=== PATIENT | male | born 1980 | race African-American/Black ===

== ENCOUNTER → 2018-06-02 | Outpatient (CLI) | payer OTHER | LOC: HYPER 07:00 | DX: L97.822 Non-pressure chronic ulcer of other part of left lower leg with fat layer exposed (principal); L97.812 Non-pressure chronic ulcer of other part of right lower leg with fat layer exposed; I87.2 Venous insufficiency (chronic) (peripheral); E66.01 Morbid (severe) obesity due to excess calories; Z79.891 Long term (current) use of opiate analgesic; Z48.817 Encounter for surgical aftercare following surgery on the skin and subcutaneous tissue; Z68.45 Body mass index [BMI] 70 or greater, adult ==

== ENCOUNTER → 2018-06-13 | Outpatient (CLI) | payer OTHER | LOC: HYPER 07:06 | DX: L97.812 Non-pressure chronic ulcer of other part of right lower leg with fat layer exposed (principal); L97.222 Non-pressure chronic ulcer of left calf with fat layer exposed; I87.2 Venous insufficiency (chronic) (peripheral); I89.0 Lymphedema, not elsewhere classified; E66.01 Morbid (severe) obesity due to excess calories; Z48.817 Encounter for surgical aftercare following surgery on the skin and subcutaneous tissue; Z79.891 Long term (current) use of opiate analgesic; Z68.45 Body mass index [BMI] 70 or greater, adult ==

== ENCOUNTER 2018-07-29 05:15 | Day surgery (SDC) | payer OTHER ==
[~2018-07-29] VITALS: Ht 185.4 cm; Wt 295.3 kg
[~2018-07-29 05:15] MED LIST: DAKIN'S473 ML TOP; LASIX 40 MG TAB40 M2 PO; NEURONTIN 300300 M1 PO; POTASSIUM20 PO
[2018-07-29 09:30] VITALS: BP 135/96
[2018-07-29 10:14] LABS: CREATININE 0.9 mg/dL (0.7-1.3); POTASSIUM 3.6 mmol/L (3.5-5.1)
[2018-07-29 12:19] VITALS: BP 135/96
--- NOTE | 2018-08-09 12:33 | O ---
[facility] [place] [address] OPERATIVE REPORT Name: PATRICK GALAVIZ Room #: DEP [facility].#: [id number] Admission: 07/29/18 ������������������ Attend Phys: Lillian Weiss MD, Discharge: 07/29/18 ������������������ Date of : 82 Report #: [id number] THIS REPORT FOR: //name// CC: FAM unknown Lillian Weiss DATE OF SERVICE: 07/29/2018 PREOPERATIVE DIAGNOSES: 1. Super morbid obesity. 2. Massive bilateral lower extremity lymphedema. 3. Nonhealing left lower extremity venous stasis wound that is near circumferential. POSTOPERATIVE DIAGNOSES: 1. Super morbid obesity. 2. Massive bilateral lower extremity lymphedema. 3. Nonhealing left lower extremity venous stasis wound that is near circumferential. PROCEDURE PERFORMED: Excisional debridement of skin, subcutaneous tissue and muscle/fascia of a nonhealing left lower extremity venous stasis ulcerative wound, ultimately measuring 62 x 37 cm in dimension (2294 square cm). Preoperative and postoperative wound measurements did not differ substantially as the overall dimensions of the wound did not change. SURGEON: Lillian Weiss M.D. QUALITY ASSURANCE ASSISTANT: Medical student. ANESTHESIA: General endotracheal anesthesia. ESTIMATED BLOOD LOSS: Minimal (less than 5 mL). COMPLICATIONS: None appreciated. SPECIMENS: All debrided tissue to pathology. INDICATIONS: The patient is a 38-year-old severe super morbidly obese -Iranian male with massive bilateral lower extremity lymphedema who developed venous stasis ulceration to the left lower extremity with near circumferential wounds that shows fibrinous necrotic tissue throughout. As such, indication was for the above-mentioned procedure today. DESCRIPTION OF PROCEDURE: After explaining the risks, benefits and alternatives of the procedure with the patient in detail and obtaining consent, the patient [address] [address] OPERATIVE REPORT Name: GALAVIZPATRICK Room #: DEP [facility] [place].Millie.#: [id number] Admission: 07/29/18 ������������������ Attend Phys: Lillian Weiss MD, Discharge: 07/29/18 ������������������ Date of : 82 Report #: [id number] was brought to the operating room and placed supine on his hospital bed as he is too large for the operating room table. After conducting a thorough timeout procedure verifying correct patient and procedure, the patient was given general endotracheal anesthesia. Once adequate anesthesia was obtained, his SCDs on his right lower extremity was hooked up to pneumatic compression device. He was given a preoperative dose of antibiotics in line with the SCIP protocol. The patient's left lower leg was prepped and draped circumferentially in standard surgical sterile fashion. The [employer] ultrasonic debridement tool was now used to circumferentially debride all nonviable skin, subcutaneous tissue and muscle/fascia from the entirety of the wound, bringing this down to healthy vascularized tissue throughout. Pressure was held for hemostasis. The patient does have massive lymphedema and overt lymph fluid was seen to drip out of the wound continuously. As such, the decision was made not to apply any extracellular matrix tissue as it would simply wash away with the massive lymphedema. Once hemostasis was assured with electrocautery, the wound was dressed with Xeroform, 4 x 4s, Telfa, ABDs and a circumferential Kerlix with Dima wrap compression. At the end of the procedure, all instrument, needle and sponge counts were correct. The patient tolerated the procedure without incident, was awakened in the operating room, transitioned to the recovery room in stable condition with no apparent complications. ��������������������������������������������� <ELECTRONICALLY SIGNED> ���������������������������������������� By: Lillian Weiss MD, FACS ��������������������������������������������� 08/09/18 1233 0932 1043 Lillian Weiss MD, FACS /nt
== END 2018-07-29 13:55 | disposition home or self-care (01) ==
LOC: OR 05:15 → TBA 05:15 → OR 10:00
PROVIDERS: Surgery
DX: T81.89XA Other complications of procedures, not elsewhere classified, initial encounter (principal); I87.2 Venous insufficiency (chronic) (peripheral); I89.0 Lymphedema, not elsewhere classified; G47.33 Obstructive sleep apnea (adult) (pediatric); E66.01 Morbid (severe) obesity due to excess calories; Z98.890 Other specified postprocedural states; Z79.899 Other long term (current) drug therapy; Z68.45 Body mass index [BMI] 70 or greater, adult; Y83.8 Other surgical procedures as the cause of abnormal reaction of the patient, or of later complication, without mention of misadventure at the time of the procedure
CPT/HCPCS: 50010; 50101; 50386; 57091; 57119; 57120; 62110; 62850; 70005

== ENCOUNTER → 2018-08-18 | Outpatient (CLI) | payer OTHER | LOC: HYPER | DX: L97.222 Non-pressure chronic ulcer of left calf with fat layer exposed (principal); L97.812 Non-pressure chronic ulcer of other part of right lower leg with fat layer exposed; I87.2 Venous insufficiency (chronic) (peripheral); I89.0 Lymphedema, not elsewhere classified; R60.0 Localized edema; E66.01 Morbid (severe) obesity due to excess calories; Z68.45 Body mass index [BMI] 70 or greater, adult; Z79.891 Long term (current) use of opiate analgesic; Z48.817 Encounter for surgical aftercare following surgery on the skin and subcutaneous tissue ==

== ENCOUNTER 2018-09-07 14:54 | Inpatient (IN) | payer BC, OTHER ==
[~2018-09-07] VITALS: Ht 185.4 cm; Wt 285.2 kg
[2018-09-07 16:42] VITALS: BP 133/83
[2018-09-07 19:06] VITALS: BP 152/93
--- NOTE | 2018-09-07 20:48 | NUR ---
ASSUMED CARE OF PATIENT APPROX 1645. ASSESSMENT AND HISTORY DONE BY THIS NURSE. VSS, NO SIGNS OF DISTRESS. PATIENT DENIES CHEST PAIN AND SHORTNESS OF BREATH. PATIENT RATED PAIN IN LEFT LEG AT A 4. PATIENT CAME IN WITH LEGS WRAPPED IN VINITA BANDAGE. PATIENT ABLE TO STAND, BRUNG PERSONAL WALKER FROM HOME. CALLED DR. ANDRE LETTING HER KNOW PATIENT MADE IT IN. DR. ANDRE STATED ANOTHER DR WAS AWARE PATIENT WAS AT HOSPITAL AND WILL TAKE CARE OF EVERYTHING. PATIENT STATED HE WOULD LIKE TO GO TO REHAB FACILITY AFTER STAY IN HOSPITAL. HE IS CURRENTLY FROM AND CHILD AND HAVING A HARD TIME COPING. PATIENT BRUNG UP TO FLOOR BEFORE BARIATRIC BED WAS AVAILBLE AND HAD TO WAIT IN CHAIR FOR THREE HOURS FOR BED. WILL CONTINUE TO MONITOR.
--- NOTE | 2018-09-08 03:08 | NUR ---
[facility] CARE AROUND 1900. NO ORDERES, PER PT, NO PHYSICIAN VISIT. PAGED TAMIKA ANDERSON CHIEF PASSENGER SHIP STEWARD/STEWARDESS FOR . ADMISSION ORDERS AND CONSULTS RECEIVED FROM COMMUNITY SERVICE REPRESENTATIVE. IV PLACED AND IV ATB INITATED. INITIAL WOUND CARE GIVEN AND PICTURES TAKEN. CPAP FOR NOC. NO S/S ACUTE DISTRESS NOTED OR REPORTED AT THIS TIME. WILL CONT TO [facility] FOR ANY CAHNGES IN CONDITION.
[2018-09-08 03:54] VITALS: BP 142/78
[2018-09-08 05:40] LABS: HEMATOCRIT 29.5 % (42.0-52.0); HEMOGLOBIN 9.7 gm/dL (14.0-18.0); MCH 29.7 pg (26.0-34.0); MCHC 32.7 g/dL (28.0-37.0); MCV 90.6 fL (80.0-100.0); RBC 3.26 mil/uL (4.50-6.00); RDW 13.8 % (10.5-14.5); WBC 11.8 thou/uL (4.0-11.0)
[2018-09-08 05:55] LABS: CALCIUM 8.4 mg/dL (8.5-10.1); CREATININE 0.9 mg/dL (0.7-1.3); POTASSIUM 3.8 mmol/L (3.5-5.1)
[2018-09-08 07:38] VITALS: BP 128/80
--- NOTE | 2018-09-08 09:55 | NUR ---
Assess for bilateral lower extremity cellulitis, venous stasis wound. Hx sleep apnea, extreme class III obesity, BMI is 81. NPO for pending I/D. Pt reports eats high protein diet and uses Premier Protein drinks. voiced no dietary questions. Will start Ensure Max, equivalent to Premier once diet readvanced. Consider a calorie controlled diet order. Low nutrition risk.
--- NOTE | 2018-09-08 12:37 | NUR ---
chart review. cm visited [facility] pt at bedside, he is a & o x4, and able to make his needs know. intro to cm, dcp, transition of care and hh. " go to [facility] wound care here already, [facility] would [facility], had [facility] and not going to use them again. 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 going through a and she/bryanna carried insurance, she took me off the insurance without me knowing. use cpap. living in apartment right know, with 2 set of 8 steps total (16) up to 2nd floor then no stairs inside. can contact mother shravan gibson [phone] if need to . krish should not be on any of my paper work. thank you"/chandler. will cont following as needed for dc needs. dcp home
--- NOTE | 2018-09-08 14:56 | NUR ---
WOUND CONSULT; ROUNDING WITH DR KIMMY DAO AND GABINO AREA PLANT MANAGER. A SMALL WOUND WAS IDENTIFIED TO THE RIGHT LATERAL HIGH ANKLE AREA. A CIRCUMFERENTIAL WOUND TO THE LEFT LEG DISTALLY. YELLOW FIBRINISH MATTER COVERS THE ENTIRE WOUND. THIS WOUND IS AN EXTREMLY PAINFUL WOUND WITH A LARGE AMOUNT OF DRAINAGE. THE PATIENT REQUIRES TO BE MEDICATED PRIOR TP THE DRESSING CHANGE. RECOMMENDATIONS; HOLD DAKINS. APPLY XEROFORM, ABD, KERLIX TODAY RN PRESENT
[2018-09-08 15:08] VITALS: BP 147/77
[2018-09-08 18:59] VITALS: BP 127/77
--- NOTE | 2018-09-08 20:27 | NUR ---
PATIENT ALERT AND ORIENTED AND ASSISTED WITH CARE. PATIENT AND MOTHER CONCERNED ABOUT PERSISTANT COUGH AND DRAINAGE. PATIENT HAS EXREME PAIN WITH MOVEMENT AT WOUND SITE. PATIENT NPO AT MIDNIGHT FOR SURGERY IN THE AM.
[2018-09-09] VITALS (9 sets, daily range): BP systolic 128–152; BP diastolic 82–94
--- NOTE | 2018-09-09 03:53 | NUR ---
ASSUMED CARE CHALINO 1899. AXOX4. KEPT NPO FOR SX IN AM. NO S/S ACUTE DISTRESS NOTED OR REPORTED AT THIS TIME. WILL CONT TO MONITOR FOR ANY CHANGES IN CONDITION.
--- NOTE | 2018-09-09 08:26 | HC ---
[facility] [place] [address] CONSULTATION Name: PATRICK GALAVIZ Room #: 450- ADM IN M.R.#: [id number] Admission: 09/07/18 ������������������ Attend Phys: Sun Linares MD Discharge: ������������������ Date of : 82 Report #: [id number] THIS REPORT FOR: //name// CC: FAM unknown Sun Linares DATE OF SERVICE: 09/08/2018 CHIEF COMPLAINT: Ulceration to the left lower extremity with a wound infection. HISTORY OF PRESENT ILLNESS: This is a 38-year-old male patient with super morbid obesity with chronic ulceration to his left lower extremity. He has a history of persistent drainage from this area, it has become increasingly swollen, painful, and has developed cellulitis. He is admitted for intravenous antibiotic therapy as well as for an operative debridement. The patient states he has significant pain there. He has a smaller ulceration on his left leg. PAST MEDICAL HISTORY: Positive for history of hypertension, super morbid obesity, obstructive sleep apnea as well as a chronic draining ulcer on the left lower extremity. CURRENT MEDICATIONS: Include potassium, Lasix, gabapentin, and Dakin solution. SOCIAL HISTORY: Negative for alcohol or tobacco use. He is currently living at home with his mother. REVIEW OF SYSTEMS: CONSTITUTIONAL: The patient denies fever, chills or weight loss. NEUROLOGICAL: The patient denies focal weakness, numbness or tingling. EYES: The patient denies visual changes, redness, or drainage. ENT: The patient denies earache, nasal drainage or sore throat. CARDIOVASCULAR: The patient denies chest pain, palpitation or diaphoresis. PULMONARY: The patient denies cough or shortness of breath. GASTROINTESTINAL: The patient denies nausea, vomiting, diarrhea or abdominal pain. ORTHOPEDIC: The patient complains of severe pain involving his left lower extremity and swelling of both legs. Other systems in a 14-point review of systems are negative. LABORATORY DATA: Includes sodium 135, potassium 3.8, chloride 99, CO2 of 30, BUN 9, creatinine 0.9, glucose 109, calcium is 8.4. White blood cell count is 11.8 with a hemoglobin of 9.7, and hematocrit of 29.5. CLINICAL IMPRESSION: 1. Cellulitis, left lower extremity with wound infection. [facility] [address] [place] [address] CONSULTATION Name: PATRICK GALAVIZ Room #: 450- ADM IN M.R.#: [id number] Admission: 09/07/18 ������������������ Attend Phys: Sun Linares MD Discharge: ������������������ Date of : 82 Report #: [id number] 2. Venous ulcerations in bilateral lower extremities and Lymphedema in bilateral lower extremities. 3. Super morbid obesity 4. Obstructive sleep apnea. RECOMMENDATIONS: At this point in time, the patient admitted to hospital for ongoing treatment and evaluation. He was started on empiric antibiotic therapy, presently pending cultures as well as outpatient cultures had been previously obtained, which will be utilized for antibiotic selection. We will take him to the operating room for Misonix debridement and then began lymphedema therapy and gentle compression as tolerated. He would greatly benefit from weight loss and would perhaps be considered a candidate for weight loss surgery. He will need aggressive nutritional support for wound healing. We will consult Podiatry for nail debridement. I appreciate being asked to see him in consultation. ��������������������������������������������� <ELECTRONICALLY SIGNED> ���������������������������������������� By: Otto Parks MD ��������������������������������������������� 09/09/18 0826 1555 1901 Otto Parks MD /nt
--- NOTE | 2018-09-09 14:55 | O ---
[facility] [place] [address] OPERATIVE REPORT Name: ANASTACIAPATRICK Room #: [facility] IN M.R.#: [id number] Admission: 09/07/18 ������������������ Attend Phys: Sun Linares MD Discharge: ������������������ Date of : 82 Report #: [id number] THIS REPORT FOR: //name// CC: FAM unknown Sun Linares DATE OF SERVICE: 09/09/2018 PREOPERATIVE DIAGNOSES: 1. Super morbid obesity. 2. Massive bilateral lower extremity lymphedema. 3. Nonhealing left lower extremity venous stasis wound that is near circumferential and has a resolving cellulitis. POSTOPERATIVE DIAGNOSES: 1. Super morbid obesity. 2. Massive bilateral lower extremity lymphedema. 3. Nonhealing left lower extremity venous stasis wound that is near circumferential and has a resolving cellulitis. PROCEDURE PERFORMED: Excisional debridement of skin, subcutaneous tissue and muscle/fascia of a nonhealing left lower extremity venous stasis ulcerative wound, ultimately measuring 71 x 44 cm in dimension (3124 square cm). Preoperative and postoperative wound measurements did not differ substantially as the overall dimensions of the wound did not change. SURGEON: Lillian Weiss M.D. BANKRUPTCY MANAGER: None. ANESTHESIA: General endotracheal anesthesia. ESTIMATED BLOOD LOSS: Minimal (less than 20 mL). COMPLICATIONS: None appreciated. SPECIMENS: All debrided tissue to pathology. INDICATIONS: The patient is a 38-year-old super morbidly obese -Sammarinese male with massive bilateral lower extremity lymphedema who developed venous stasis ulceration of the bilateral lower extremities. The patient's right lower extremity wound is minimal; however, his left lower extremity has near circumferential wounds with a fibrinous necrotic tissue throughout and resolving cellulitis. As such, indication was for the above-mentioned procedure again today as he underwent a similar procedure month and a half ago. [address] [address] OPERATIVE REPORT Name: GALAVIZPATRICK Room #: 450-P [facility] IN M.R.#: [id number] Admission: 09/07/18 ������������������ Attend Phys: Sun Linares MD Discharge: ������������������ Date of : 82 Report #: [id number] DESCRIPTION OF PROCEDURE: After explaining the risks, benefits and alternatives of the procedure with the patient in detail and obtaining consent, the patient was brought to the operating room and placed supine on his hospital bed as he is too large to the operating room table. After conducting a thorough timeout procedure verifying correct patient and procedure, the patient was given general endotracheal anesthesia. Once adequate anesthesia was obtained, his SCDs on the right lower extremity was hooked up to the pneumatic compression device and he was already on an inpatient regimen of IV antibiotic therapy, which is in line with the SCIP protocol. The patient's left lower leg was prepped and draped circumferentially in standard surgical sterile fashion. A moist Misonix ultrasonic debridement tool was now used to circumferentially debride all nonviable skin, subcutaneous tissue and muscle/fascia from the entirety of the wound bringing this down to healthy vascularized tissue throughout. Pressure was held for hemostasis. The patient does have massive lymphedema with overt lymph fluid dripping out of the wound continuously. As such, the decision was made to not apply any extracellular matrix tissue as it would simply wash away with massive lymphedema. Once hemostasis was assured with electrocautery and pressure, the wound was dressed with Xeroform, 4 x 4s, Telfa, ABDs and a circumferential Kerlix with Dima wrap compression. At the end of the procedure, all instrument, needle and sponge counts were correct. The patient tolerated the procedure without incident, was awakened in the operating room and transitioned to the recovery room in stable condition with no apparent complications. ��������������������������������������������� <ELECTRONICALLY SIGNED> ���������������������������������������� By: Lillian Weiss MD, FACS ��������������������������������������������� 09/09/18 1455 1201 1225 Lillian Wiess MD, FACS /nt
--- NOTE | 2018-09-09 16:20 | NUR ---
Received awake on bed. On NPO-advised patient. Scheduled for I&D today, consent signed. With IV at L FA- NS at 125cc/hr, infusing well. PT on RA during the day, CPAP at night. Pt seen by Dr Jade this am prior to OR, informed him re: ?pre-sepsis this am as handed over by night staff. OR staff called, pt will be fetched bet 12-1pm- pt updated. OR staff came up around 10am to fetch patient, report given. Pt came back to the [facility] after lunch, checked diet-may resume diet- food tray given to patient; able to tolerate well w/o N+V or stomach pain. Wound dressing C/D/I. Temperature and vital signs monitored closely.
--- NOTE | 2018-09-09 20:19 | HC ---
[facility] [place] [address] CONSULTATION Name: PATRICK GALAVIZ Room #: 450-P [facility] IN M.R.#: [id number] Admission: 09/07/18 ������������������ Attend Phys: Sun Linares MD Discharge: ������������������ Date of : 82 Report #: [id number] THIS REPORT FOR: //name// CC: FAM unknown Sun Linares DATE OF SERVICE: 09/08/2018 INFECTIOUS DISEASE CONSULTATION: REASON FOR CONSULTATION: Evaluate left lower extremity venous stasis wound infection. HISTORY OF PRESENT ILLNESS: The patient was a 38-year-old morbidly obese with chronic lymphedema with obstructive sleep apnea. He has been treating lower extremity wounds, left greater than right for over a year. He has been treating this at home. Intermittent courses of antibiotics over the last year. None recently until this past week, was seen by Dr. Gaines. Cultures have been obtained and have grown from 09/02/2018, methicillin-susceptible Staph aureus, Pseudomonas aeruginosa and Enterococcus faecalis. He has had no fever, chills or sweats. Has significant amount of pain in the posterior left lower leg and calf region. REVIEW OF SYSTEMS: He has had no cough or sputum production. No nausea, vomiting or diarrhea. He is a nonsmoker. He is markedly immobile due to his morbid obesity over 600 pounds. REVIEW OF SYSTEMS: Ten-point negative other than what is described above. ALLERGIES: None. MEDICATIONS: As noted on his MAR. PAST MEDICAL HISTORY: Obstructive sleep apnea, hiatal hernia, left knee ACL reconstruction. FAMILY HISTORY: Noncontributory. SOCIAL HISTORY: Nonsmoker, no significant alcohol intake. PHYSICAL EXAMINATION: VITAL SIGNS: Afebrile and hemodynamically stable. GENERAL: Alert and cooperative. Morbidly obese. SKIN: With venous stasis ulcers both lower extremities, left greater than right. No palpable adenopathy. EYES: Without scleral icterus. [facility] [address] [place] [address] CONSULTATION Name: PATRICK GALAVIZ Room #: 450-P [facility] IN [facility].#: [id number] Admission: 09/07/18 ������������������ Attend Phys: Sun Linares MD Discharge: ������������������ Date of : 82 Report #: [id number] MOUTH: Without mucositis. CHEST: Decreased breath sounds bilaterally. HEART: Regular, without murmur, gallop or rub. ABDOMEN: Obese, soft, nontender, no hepatosplenomegaly or mass appreciated. GENITAL AND RECTAL: Did not evaluate his genital or rectal areas. EXTREMITIES: Left lower extremity had venous stasis disease and ulcerations which are markedly tender on the left. Right small lateral lower leg wound was clean. Pulses in the feet were normal. Sensation was normal. LABORATORY DATA: As noted above with cultures of Pseudomonas resistant to quinolones, ticarcillin, intermediate to ceftazidime and cefepime. The Enterococcus was sensitive to penicillin. IMPRESSION: 1. A 38-year-old with morbid obesity, chronic lymphedema, now with left lower extremity venous stasis wound infection, which is polymicrobial including pseudomonas. 2. Chronic lymphedema. 3. Obstructive sleep apnea. RECOMMENDATIONS: We will continue empiric antibiotics with meropenem to cover Enterococcus, methicillin-susceptible Staph aureus and Pseudomonas. The patient will undergo debridement tomorrow for further cultures and continue with wound care. The patient will need aggressive weight loss program. ��������������������������������������������� <ELECTRONICALLY SIGNED> ���������������������������������������� By: Joel Calderón MD ��������������������������������������������� 09/09/18 2019 2243 2314 Joel Calderón MD /nt
[2018-09-10 04:46] VITALS: BP 139/79
--- NOTE | 2018-09-10 07:46 | NUR ---
Assumed care at 1845. Pt resting in bed. AOX4. VSS. Patient rates pain is 4/10. Dressing clean dry and intact. No identified needs. Call light within reach. Will continue to monitor.
[2018-09-10 08:00] VITALS: BP 128/81
--- NOTE | 2018-09-10 09:25 | HC ---
[facility] [place] [address] CONSULTATION Name: PATRICK GALAVIZ Room #: [facility]- ADM IN M.R.#: [id number] Admission: 09/07/18 ������������������ Attend Phys: Sun Linares MD Discharge: ������������������ Date of : 82 Report #: [id number] THIS REPORT FOR: //name// CC: FAM unknown Sun Linares Treating Physicians DATE OF SERVICE: 09/09/2018 INTRODUCTION: The patient is a 38-year-old male who has been admitted to [facility] with cellulitis involving the left leg, associated with chronic venous stasis ulceration. The patient is morbidly obese and has had chronic skin sequela involving both lower extremities and as a result of this condition, he is being seen for general podiatric consultation as he has not had any nail care in the last year. PAST MEDICAL HISTORY: With regard to this condition includes obesity, the consequences of severe lower extremity edema including ulceration. There is no other contributing past medical history with regard to his feet. PHYSICAL EXAMINATION: EXTREMITIES: He states that his feet are hypersensitive. He has inability of caring for his own toenails. His pedal exam reveals dorsalis pedis and posterior tibial pulses graded 2/4. Capillary refill time is within normal limits. The patient has 2+ edema in both feet with desquamation of skin involving the plantar aspects of both feet, especially the left as a result of fluctuations in his lower extremity edema. His nails are dystrophic, elongated, thickened, clinically consistent with onychomycosis. Many of his nails are over 3 cm long and have not been attended to. They were debrided today with no additional underlying pathology noted at the time of treatment. There are no acute findings during this examination and treatment. IMPRESSION: 1. Morbid obesity with lower extremity cellulitis. 2. Onychodystrophy associated with onychomycosis, generally poor nail hygiene. PLAN: The patient's nails were debrided as discussed. We discussed general hygienic principles and no additional treatment was required. I will be pleased to follow up with this patient upon request and had the pleasure of opportunity of caring for the patient. ��������������������������������������������� <ELECTRONICALLY SIGNED> ���������������������������������������� By: Tanner Pineda DPM ��������������������������������������������� 09/10/18 0925 0954 1012 Tanner Pineda DPM /nt
[2018-09-10 15:00] VITALS: BP 134/81
--- NOTE | 2018-09-10 17:10 | NUR ---
PT A&OX4, VSS, PAIN IN LLE. PAIN MANAGED WITH MEDICATION. PATIENT IV INN RIGHT HAND INFILTRATED. MADE CALL TO IV TEAM TO REPLACE NEW ONE. DRESSING CHANGED ON LEFT LEG PER ORDER. PATIENT ASSISTED TO BATHROOM WHERE HE DID HIS OWN JERMAINE CARE. WILL CONTINUE TO MONITOR.
[2018-09-10 18:59] VITALS: BP 122/89
--- NOTE | 2018-09-11 03:11 | NUR ---
AASUMED CARE AROUND 1900. AXOX4. WOUND DRESSING CHANGED WITH DAY RN AROUND SHIFT CHANGE. TOLERATED WELL. NO S/S ACUTE DISTRESS NOTED OR REPORTED AT THIS TIME. WILL CONT TO MONITOR FOR ANY CHANGES IN CONDITION.
[2018-09-11 04:30] VITALS: BP 119/75
[2018-09-11 05:54] LABS: HEMATOCRIT 31.2 % (42.0-52.0); HEMOGLOBIN 10.1 gm/dL (14.0-18.0)
[2018-09-11 05:56] LABS: MCH 29.4 pg (26.0-34.0); MCHC 32.4 g/dL (28.0-37.0); MCV 90.7 fL (80.0-100.0); RBC 3.44 mil/uL (4.50-6.00); RDW 13.9 % (10.5-14.5); WBC 19.5 thou/uL (4.0-11.0)
[2018-09-11 07:14] VITALS: BP 135/81
--- NOTE | 2018-09-11 13:40 | NUR ---
TOWARDS POC PT A/O X4, VSS, AFEBRILE, DENIES PAIN. PT REFUSED TO WOUND DRESSING CHANGE, PROVIDER AWARE. DRESSING C/D/I. NO CONCERNS VOICED. WILL CONTINUE TO MONITOR.
[2018-09-11 13:52] VITALS: BP 140/88
[2018-09-11 19:15] VITALS: BP 129/86
--- NOTE | 2018-09-12 02:48 | NUR ---
ASSUMED CARE AROUND 1900. AXOX4. LLE DRESSING CDI. NO S/S ACUTE DISTRESS NOTED OR REPORTED AT THIS TIME. WILL CONT TO MONITOR FOR CHANGES IN CONDITION.
[2018-09-12 03:10] VITALS: BP 148/92
[2018-09-12 06:40] LABS: ABSOLUTE NEUTROPHILS 6.7 thou/uL (1.4-8.2); BASOPHILS 0.4 % (0.0-2.0); EOSINOPHILS 5.7 % (0.0-3.0); HEMATOCRIT 31.4 % (42.0-52.0); HEMOGLOBIN 10.1 gm/dL (14.0-18.0); LYMPHOCYTES 14.6 % (24.0-44.0); MCH 29.1 pg (26.0-34.0); MCHC 32.3 g/dL (28.0-37.0); MCV 90.3 fL (80.0-100.0); MONOCYTES 7.1 % (1.0-8.0); PLATELET COUNT 347 thou/uL (150-400); POLYS 72.2 % (36.0-66.0); RBC 3.47 mil/uL (4.50-6.00); RDW 14.5 % (10.5-14.5); WBC 9.3 thou/uL (4.0-11.0)
[2018-09-12 07:47] VITALS: BP 142/65
--- NOTE | 2018-09-12 09:57 | EKG ---
[address] [place] [address] ELECTROCARDIOGRAM REPORT Name: ANASTACIAPATRICK Room #: 450-P ADM IN M.R.#: [id number] ������������������ Admission: 09/07/18 ������������������ Attend Phys: Sun Linares MD Discharge: ������������������ Date of : 84 Report #: [id number] ����������������������������������������������������������������� [id number] THIS REPORT FOR: //name// 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 Operator: Rosario BURNETTE : 1980 Requested By: Jose Jade Order Number: [id number] MD: Dejan Prater Measurements Intervals [place] Rate: 116 P: 44 CO: 159 QRS: 17 QRSD: 86 T: 29 QT: 343 QTc: 477 Interpretive Statements Sinus tachycardia Borderline prolonged QT interval No previous ECG available for comparison Electronically Signed On 09-12-2018 9:57:51 CDT by Dejan Prater [email or web address] ��������������������������������������������� <ELECTRONICALLY SIGNED> ���������������������������������������� By: Dejan Prater MD, [facility] ��������������������������������������������� 09/12/18 0957 [id number] 0949 Dejan Prater MD, FACC /EPI
--- NOTE | 2018-09-12 10:47 | NUR ---
WOUND CARE FOLLOW UP; ROUNDING WITH ALAN BELLY DANCER AND GABINO PHOTOLITHOGRAPHIC STRIPPER. WOUNDS REMAIN TENDER AND HAVE A PSDOMONAS SMELL TODAY. WOUND BEDS IMPROVED SINCE DEBRIDMENT WITH [facility] THERAPY. RECOMMENDATION DAKINS MOIST GAUZE TODAY ONLY. DISCUSSED WITH PATIENT AND STAFF
--- NOTE | 2018-09-12 13:15 | NUR ---
Received awake on bed. Due medications given as prescribed. A+Ox4. With IV at R FA- patent and intact. Pt with constantly high HR for a couple of days- Dr Jade informed today, for EKG- done, result shown to Dr Jade, he does not need to be on any medication as per Drs advise. Pt had PT session today. Seen by Wound team today, dressing done. Pt complained of pain after dressing change- due pain meds given with partial pain relief, complained of cough as well- due meds given.
--- NOTE | 2018-09-12 15:43 | NUR ---
PT COMEPLETED HOME MAURO SMALL AND INDICATED THAT PT ISN'T SAFE TO RETURN HOME TO HIS APARTMENT HE HAS 18 STEPS TO ENTER. CM NOTIFIED PHYSICIAN AND ASKED FOR 5[facility] TO ASSESS. CM TO FOLLOW INDICATED WITH DC PLANNING.
[2018-09-12 17:33] VITALS: BP 140/68
[2018-09-12 21:06] VITALS: BP 149/87
[2018-09-13 03:32] VITALS: BP 136/86
[2018-09-13 07:12] VITALS: BP 127/77
--- NOTE | 2018-09-13 07:32 | NUR ---
PROGRESS PT A/O X4 RATES PAIN AN 8 OUT OF 0/10 STATES HIS LEFT LEG IS BURNING TAKING HYDROCODONE WITH EFFECT PT SLEEPS AFTER, IV ANTIBIOTICS GIVEN ORDERED, PT REPOSITIONS SELF IN BARIATRIC BED. SLEPT MOST OF SHIFT CONTINUE POC.
--- NOTE | 2018-09-13 09:37 | NUR ---
PATIENT SEEN BY DR. COWART THIS DATE FOR REHAB CONSULT. PATIENT IS HOPING TO BE ABLE TO GO DIRECTLY HOME AND HAS BEEN WORKING WITH PHYSICIAL THERAPY WHILE IN ACUTE CARE. DR. COWART FEELS THEIR IS A CHANCE THAT WITH 1-2 MORE DAYS WITH THERAPY TREATMENT, PATIENT MAY BE SAFE ENOUGH TO GO DIRECTLY HOME. PATIENT ONLY HAD OT FOR LYMPHEDEMA TREATMENT. DR. COWART ORDERED OT EVAL AND TREAT FOR FUNCTIONAL TRANSFERS/INDEPENCE IN SELF CARE.
--- NOTE | 2018-09-13 11:42 | NUR ---
WOUND CARE FOLLOW UP; LYMPHEDEMA MANAGEMENT IS HERE TODAY TO WRAP BILATERAL LE'S. THE WOUNDS WERE LESS TENDER TODAY. NO PSUDOMONAS SMELL IDENTIFIED. RECOMMENDATION WOUND CARE AND LYMPHEDEMA RN WILL ALTERNATE DRESSING CHANGES; WOUND CARE WILL DO M/W/F DISCUSSED WITH RN
[2018-09-13 15:10] VITALS: BP 131/73
--- NOTE | 2018-09-13 15:32 | NUR ---
5N ASSESSED PT AND THEY INDICATED THAT THEY FELT THAT WITH A FEW MORE DAYS OF PT AND OT THAT PT MIGHT BE ABLE TO RETURN TO HIS APARTMENT. CARE TEAM INDICATED THAT PT WILL NEED PROLONGED ANTIBIOTICS EVERY 6 HRS FOR 3-4 WEEKS. CM TO CONTINUE TO FOLLOW INDICATED WITH DC PLANNING.
--- NOTE | 2018-09-13 18:38 | NUR ---
VASCULAR ACCESS TEAM SPOKE WITH REGARDING LINE ORDER. HE STATED EITHER PICC OR MIDLINE FOR FEW WEEKS OF ABX. PT HAS LARGE LEFT CEPHALIC PER USG BUT PT REFUSED TONIGHT DUE TO PAIN IN LEG BUT AGREEABLE FOR LINE PLACEMENT IN AM
--- NOTE | 2018-09-13 19:31 | NUR ---
Received awake on bed. Due medications given as prescribed. With SL at R FA- patent. Had PT/OT today. A+Ox4. Talked to Wound nurse re: Podiatry referral and what Dr lind said yesterday, as per Dustin, he already clarified with Mary Jo re: order and she will take it off since Dr Lind already saw pt last Wednesday and did toe care on him. Pt seen by Lymph[facility]a team today, dressing changed with them, pain medication given prior to dressing change. Pt wound culture results came back, Dr Garrison aware and seen patient. Pt requested to have his name on system as confidential for marital issues, US informed re: pts request and she called in admitting- night staff informed as well just incase someone calls for the patient. Pt seen by Dr Calderón this PM, put in consult for Vascular Access- for either PICC/Midline insertion tomorrow for antibiotics, IV team aware and will see pt tomorrow. Vital signs stable. Kept comfortable. Falls risk- falls bundle in place.
[2018-09-13 19:36] VITALS: BP 127/70
[2018-09-14 04:16] LABS: ALBUMIN 1.9 g/dL (3.4-5.0); CALCIUM 8.6 mg/dL (8.5-10.1); CREATININE 0.8 mg/dL (0.7-1.3); MAGNESIUM 2.1 mg/dL (1.8-2.4); POTASSIUM 4.6 mmol/L (3.5-5.1); TOTAL BILIRUBIN 0.3 mg/dL (<0.1-1.0); TOTAL PROTEIN 7.8 g/dL (6.4-8.2)
--- NOTE | 2018-09-14 04:24 | NUR ---
Assumed care at 1845. Pt resting in bed. AOX4. VSS. Denies chest pain. No identified needs at the moment. Will continue to monitor.
[2018-09-14 04:43] LABS: HEMATOCRIT 32.5 % (42.0-52.0); HEMOGLOBIN 10.6 gm/dL (14.0-18.0); MCH 29.6 pg (26.0-34.0); MCHC 32.7 g/dL (28.0-37.0); MCV 90.7 fL (80.0-100.0); RBC 3.58 mil/uL (4.50-6.00); RDW 14.4 % (10.5-14.5)
[2018-09-14 04:45] VITALS: BP 141/91
[2018-09-14 07:30] VITALS: BP 130/75
--- NOTE | 2018-09-14 12:23 | NUR ---
CM MET WITH PT AT BEDSIDE THIS DAY. CM INDICATED THAT CARE TEAM IS RECOMMENDED IV ANX UPON DC. CM INDICATED THAT HOME INFUSION WOULD BE AN OPTION BUT PT INDICATED HE ISN'T CAPABLE TO GET INTO HIS MOTHERS APPARTMENT AT THIS TIME. PT INDICATED THAT HE HOPES TO REMAIN HERE UNTIL HIS BCBS BLUE JERRICA BECOMES AFFECTIVE September AND THEN WANTS TO GO TO [facility]. CM CONVEYED THIS TO CARE TEAM. CM FOLLOWING TO ASSIST WITH DC PLANNING.
[2018-09-14 14:28] VITALS: BP 140/73
--- NOTE | 2018-09-14 19:04 | NUR ---
VASCULAR ACCESS TEAM ORDER VERIFIED. PATIENT VERBALLY CONSENTED FOR MIDLINE PLACEMENT. LINE PLACED PER HOSPITAL P&P. 2ML OF 1% LIDOCAINE ADMINISTERED. L CEPHALIC VEIN CANNULATED WITH 1 ATTEMPT. GUIDEWIRE ADVANCED EASILY. VEIN DILATED. GUIDEWIRE REMOVED INTACT. LINE TRIMMED TO 12CM LINE INSERTED WITH 0CM EXTERNAL. LINE FLUSHES AND DRAWS EASILY. PATIENT TOLERATED PROCEDURE WELL. MIDLINE OK TO USE .
[2018-09-14 19:14] VITALS: BP 134/72
--- NOTE | 2018-09-14 19:42 | NUR ---
ASSUMED CARE OF PATIENT AT 0715, PATIENT ALERT AND ORIENTED X 4. PATIENT UP WITH WALKER. PATIENT HAS BILATERAL LEG DRESSINGS, LEFT LEG CELLULITIS, AND RIGHT LEG LYMPHEDEMA, WOUND CARE DOES DRESSING MWF AND LYMPHEDEMA STAFF DOES RIGHT LEG. PATIENT HAS RIGHT FOREARM IV IN PLACE, RECEIVED AMPICILLIN X 2 THIS SHIFT. PATIENT RECEIVED HYDROCODONE 1 TABLET PRIOR TO PHYSICAL THERAPY. PATIENT AMBULATED, BUT NO STAIRS TODAY. PATIENT VOIDS PER URINAL. WAITING ON PLACEMENT TO FACILITY OR HOME. LEFT UPPER ARM MIDLINE PLACE FOR HOME ANTIBIOTICS X 5-6 WEEKS. WILL CONTINUE TO MONITOR.
[2018-09-15 04:14] VITALS: BP 128/80
--- NOTE | 2018-09-15 04:27 | NUR ---
ASSUMMED CARE OF PT AT 1900HRS. PT AOX4 AND LETS NEEDS BE KNOWN. FALL PRECAUTIONS IN PLACE. FAMILY IS AT BEDSIDE. PT DID NOT REPORT ANY PAIN THIS SHIFT. PT IS STILL TACHYCARDIC AND PROVIDERS ARE AWARE PER PREVIOUS NOTES. NO OTHER S/S OF ACUTE DISTRESS. WILL CONTINUE TO MONITOR.
[2018-09-15 07:20] VITALS: BP 132/81
--- NOTE | 2018-09-15 12:43 | NUR ---
Nutrition: Pt seen per followup. Admit with bilateral LE cellulitis, venous stasis wound. S/P debridement. Continues to eat well including high protein sources and drinking ensure max. BMI 81, extreme class 3 obesity. Noted physician note suggesting gastric bypass. Pt voices no nutrition questions. Continue to suggest calorie controlled diet. Low risk.
[2018-09-15 16:34] VITALS: BP 123/78
[2018-09-15 19:52] VITALS: BP 135/79
--- NOTE | 2018-09-15 20:36 | NUR ---
ASSUMED CARE OF PATIENT AT 0715, PATIENT ALERT AND ORIENTED X 4. UP WITH ASSIST WITH WALKER. PATIENT MEDICATED X 2 TODAY, FOR PHYSICAL THERAPY AND PRIOR TO WOUND CARE. PATIENT HAS LEFT UPPER ARM MIDLINE, RECEIVED ANTIBIOTIC X 2 THIS SHIFT. PATIENT HAS BILATERAL LEGS DRESSING IN PLACE. MOTHER AT BEDSIDE ALL DAY. WAITING ON PLACEMENT TO FACILTIY. WILL CONTINUE TO MONITOR.
--- NOTE | 2018-09-16 03:29 | NUR ---
Assumed care at 1845. Pt resting in bed. AOX4. VSS. Denies pain. Mother on bedside. Still waiting on insurance to be effective September 19 to be placed at [facility]. No identified needs at the moment. Will continue to monitor.
[2018-09-16 05:13] VITALS: BP 149/81
[2018-09-16 08:00] VITALS: BP 138/69
--- NOTE | 2018-09-16 10:24 | NUR ---
WOUND CARE FOLLOW UP; THE PATIENTS WOUND DRESSINGS WILL BE CHANGED BY LYMPHEDEMA SPECIALIST SO THE DRESSINGS WERE NOT DESTURBED. THE WAS NO ODOR FROM THE WOUND TODAY. THE DRAINAGE HAD NOT OVERTAKEN THE DRESSING AT THIS TIME. CONTINUE PLAN OF CARE. DISCUSSED WITH JUSTIN
--- NOTE | 2018-09-16 11:44 | NUR ---
TOWARDS POC PT /AO X4, VSS, AFEBRILE. PRN PAIN MEDS GIVEN PRIOR LYMPH EDEMA THERAPY. PT WAS WRAP BY LYMPH EDEMA NURSE THIS AM. NO CONCERNS VOICED. FALL BUNDLE IN PLACE. WILL CONTINUE TO MONITOR.
[2018-09-16 19:23] VITALS: BP 143/84
--- NOTE | 2018-09-17 01:44 | NUR ---
PATIENT AOX4 MAKES NEEDS KNOWN. PATIENT ENCOURAGED FLUIDS. MOM AT BEDSIDE. PATIENT DENIED PAIN OR DISCOMFORT. BLE CELLULITIS HAVE VINITA WRAPS. DRESSINGS ON BLE ARE C/D/I. FALL PRECAUTION IN PLACE. PATIENT REFUSED C PAP THIS SHIFT. PATIENT EDUCATED THE NEED OF C PAP D/T SLEEP APNEA. PATIENT IN BED ASLEEP AT THIS TIME BREATHING REGULAR AND UNLABOURED.
[2018-09-17 06:21] VITALS: BP 125/75
[2018-09-17 07:37] VITALS: BP 131/83
--- NOTE | 2018-09-17 13:47 | NUR ---
Received awake on bed. Due medications given as prescribed. With Midline at Left Upper arm- patent. Assisted in ADLs. Pts mother at bedside. A+Ox4. On room air. Vital signs stable- known tachycardic. Able to use the urinal, assisted in ADLs. With bilateral leg edema- legs elevated. Wound dressings intact, as per night staff, dressings and wrap will be changed on wednesday, not to open dressings for today as instructed.
[2018-09-17 14:48] VITALS: BP 138/89
[2018-09-17 20:35] VITALS: BP 139/82
--- NOTE | 2018-09-18 00:23 | NUR ---
patient aox4 makes needs known. patient ble wraps are c/d/i. patient encouraged fluids. patient refused facilities c pap, says he needs his own and continues to say he dont like the mask on the facility one. patient continent of both bowel and bladder this shift. patient uses urinal at night.patient in bed asleep at this time breathing regular and unlaboured.
[2018-09-18 06:02] VITALS: BP 137/86
[2018-09-18 07:36] VITALS: BP 144/80
--- NOTE | 2018-09-18 13:07 | NUR ---
Received awake on bed. Due medications given as prescribed. On room air. Vital signs stable. A+Ox4. Pt assisted with ADLs. With bilateral leg dressings- as handed over by night staff, lymphedema team will change dressing tomorrow. to leave dressings on over the weekend. C/D/I upon assessment. With midline at left upper arm- patent and intact- antibiotics given thru midline. Pt with bilateral leg edema- Lower extremities kept elevated.
[2018-09-18 13:45] VITALS: BP 147/84
[2018-09-18 19:49] VITALS: BP 131/64; BP 148/81
--- NOTE | 2018-09-19 03:46 | NUR ---
ASSUMED CARE OF PT AT 1900HRS. PT AOX4 AND CALLS FOR HELP NEEDED. PT WAS ABLE TO GET SOME SLEEP THIS SHIFT. FALL PRECAUTION IN PLACE. NO S/S OF ACUTE DISTRESS. WILL CONTINUE TO MONITOR.
[2018-09-19 04:15] VITALS: BP 116/82
[2018-09-19 09:37] VITALS: BP 128/81
--- NOTE | 2018-09-19 10:55 | NUR ---
FAXED REFERRAL TO [facility] SPOKE WITH RAFAEL IN ADM HE RECEIVED REFERRAL AND WILL REVIEW. DCP TO FOLLOW.
--- NOTE | 2018-09-19 12:10 | NUR ---
TOWARDS POC PT A/O X4, VSS, AFEBRILE. PRN PAIN MEDS GIVEN. BLE WRAPS DONE BY LYMPH EDEMA NURSE. WILL CONTINUE TO MONITOR.
--- NOTE | 2018-09-19 12:57 | NUR ---
WOUND CARE FOLLOW UP; FOLLOW UP TO ASSIST LYMPHEDMA THERAPY STAFF TO APPLY THE NEW DRESSINGS. DR CHE WILSON ARRIVED WITH GABINO WASHING MACHINE OPERATOR TO ASSESS THESE WOUNDS. BILATERALLY ALL THE WOUNDS ARE BEEFY RED, DRAMATICALLY DECREASED DRAINAGE. WE WILL D/C PRIOR ORDERS AND USE PURACOL AG TO WOUNDBED, COVERED WITH XEROFORM, ABD KERLIX AND LYMPHEDEMA WRAPS AND CONTINUE LYMPHEDEMA TX. DISCUSSED WITH JUSTIN
--- NOTE | 2018-09-19 13:03 | NUR ---
WOUND CARE FOLLOW UP; DR CHE WILSON ROUNDING TODAY WITH GABINO ANDERSON BSN. A LARGE ISCHIAL TUBEROSITY STAGE 4 WOUND IS PRESENT DOWN TO THE MUSCULE LEVEL, NO BONE INVLOVEMENT SEEN. MRI TO LOOK FOR OSTEOMYLITIS. A LEFT LATERAL HEEL WOUND UNSTAGEABLE DUE TO NECROSIS. PLAN; CONTINUE DAKINS DAILY TO BOTH WOUNDS. DISCUSSED WITH JUSTIN
--- NOTE | 2018-09-19 14:55 | NUR ---
PT HAS ACTIVE BCBS INSURANCE OF TODAY. CM MET WITH PT AT BEDSIDE THIS DAY AND ASKED THAT REFERRAL BE SENT TO [facility] FOR REVIEW FOR POSSIBLE ADMISSION. REFERRAL SENT. CM TO FOLLOW INDICATED WITH DC PLANNING.
[2018-09-19 15:11] VITALS: BP 130/82
[2018-09-19 20:00] VITALS: BP 144/92
[2018-09-20 03:37] VITALS: BP 133/84
--- NOTE | 2018-09-20 04:53 | NUR ---
Pt. rested quietly at intervals during the night when checked on during frequent rounds. He offers no c/o pain. Dressing to bilaterla lower legs are intact.
[2018-09-20 04:54] LABS: ABSOLUTE NEUTROPHILS 4.8 thou/uL (1.4-8.2); BASOPHILS 0.5 % (0.0-2.0); EOSINOPHILS 5.1 % (0.0-3.0); HEMATOCRIT 33.8 % (42.0-52.0); HEMOGLOBIN 10.9 gm/dL (14.0-18.0); LYMPHOCYTES 23.7 % (24.0-44.0); MCH 29.2 pg (26.0-34.0); MCHC 32.4 g/dL (28.0-37.0); MCV 90.4 fL (80.0-100.0); MONOCYTES 6.8 % (1.0-8.0); PLATELET COUNT 391 thou/uL (150-400); POLYS 63.9 % (36.0-66.0); RBC 3.74 mil/uL (4.50-6.00); RDW 14.6 % (10.5-14.5); WBC 7.5 thou/uL (4.0-11.0)
[2018-09-20 05:08] LABS: CALCIUM 8.6 mg/dL (8.5-10.1); CREATININE 0.8 mg/dL (0.7-1.3); MAGNESIUM 1.9 mg/dL (1.8-2.4); POTASSIUM 4.4 mmol/L (3.5-5.1); TOTAL BILIRUBIN 0.2 mg/dL (<0.1-1.0); TOTAL PROTEIN 7.8 g/dL (6.4-8.2)
[2018-09-20 07:18] VITALS: BP 133/75
--- NOTE | 2018-09-20 11:09 | NUR ---
DISCHARGE PLANNING; DP SENT UPDATES TO [facility]. DP ALSO CALLED AND LEFT MESSAGE FOR ADMISSIONS DEPT. TO LET THEM KNOW PT MAY DC SOON, AND ASKED IF THEY HAVE STARTED INSURANCE AUTH.
[2018-09-20 15:23] VITALS: BP 122/79
--- NOTE | 2018-09-20 16:58 | NUR ---
Electrical Cad Technician visited with the pt discuss his dc planning needs. Mick/OP have declined the pt due to insurance issues and complexity of care. Pt will have a 30% copay ($200)that would need to be upfront and he can not afford it. He needs to be indep with gait and adl's to return home. Will ask PT/OT and [facility]N to reassess as well as [facility] and [facility]. Pt needs lymphodema therapy, iv atb, and rehab for a couple weeks to be able to return home. He has two flights of steps in and out of his apt. His mother is looking for a ground level apt for the future. Pt appears motivated to work hard in rehab and be as indep as possible.
--- NOTE | 2018-09-20 18:15 | NUR ---
ASSUMED CARE AT 0700. PT A&OX4. PT SEEN BY WOUND RN AND PHYSICIAN TODAY. THEY STATED THAT THE PT'S LEGS DO NOT NEED TO BE RE-WRAPPED TODAY DUE TO BEING WRAPPED YESTERDAY. PT REFUSED PT TODAY DO TO LEG PAIN. PT EDUCATED ON IMPORTANCE OF LETTING RN KNOW WHEN HE IS IN PAIN OR PRIOR TO THERAPY. PT STATES HE WAS NOT IN PAIN PRIOR TO THERAPY BUT DID NOT KNOW TO ASK FOR PAIN MEDS BEFORE THERAPY. PT WILL ASK FOR PAIN MEDS TOMORROW AND STATES HE WANTS TO WORK WITH PHYSICAL THERAPY. PT MOVES HIMSELF IN BED AND USES URINAL ON HIS OWN. PT CALLS OUT APPROPRIATELY AND IS VERY PLEASANT. PT WATCHED TV OR WAS OBSERVED TO BE ON HIS PHONE MOST OF SHIFT. WILL CONTINUE TO MONITOR PT.
[2018-09-20 18:59] VITALS: BP 139/79
[2018-09-21 03:55] VITALS: BP 125/84
--- NOTE | 2018-09-21 04:46 | NUR ---
Pt. rested quietly at intervals during the night when checked on during frequent rounds. Pt. c/o lower leg pain and rates it at a 5 out of 10. He refused pain meds when offered. Wraps to lower legs are dry and intact.
[2018-09-21 07:30] VITALS: BP 128/83
--- NOTE | 2018-09-21 09:19 | NUR ---
Nutrition followup: pt admit with bilateral LE cellulities, venous stasis wound, S/P debridement. Continued good intake of meals, protein sources and ensure max supplements. Planning workup as outpatient for bariatric surgery per GS. Continues on regular diet, Suggest calorie controlled. Low risk.
--- NOTE | 2018-09-21 12:30 | NUR ---
DISCHARGE PLANNING. ACUTE REHAB RECOMMENDED AT DISCHARGE. [facility] REVIEWING PATIENT. PLAN IS FOR [facility] SUBMIT TO SUBMIT FOR INSURANCE AUTH SHOULD THEY DETERMINE PATIENT IS A CANDIDATE FOR [facility]. REFERRALS ALSO FAXED TO [place], [facility] AND [facility]. BOTH TO REVIEW PATIENT CLINICAL INFORMATION AND NOTIFY CM ONCE COMPLETE. UNIT CM/SW AWARE. FOLLOWING TO ASSIST WITH DISCHARGE NEEDS.
[2018-09-21 14:30] VITALS: BP 135/83
--- NOTE | 2018-09-21 15:09 | NUR ---
REFERRALS WERE SENT TO [facility], AND [facility]. PT WOULD PREFER TO GO TO [facility] BAS[facility] DISTANCE OF TRANSPORTATION FOR HIS MOTHER AND USE OF SPECIALIZED BARIATRIC EQUIPMENT. JOSE ALBERTO WITH [facility] TO SEE PT TODAY, RUSS WITH [facility] TO ASSESS PT, [facility] INDICATED THEY COULD SUBMIT FOR AUTH IF PT IS AGREEABLE WITH ADMISSION TO . CM TO FOLLOW INDICATED WITH DC PLANNING.
--- NOTE | 2018-09-21 15:09 | NUR ---
towards poc WOUND CARE AND LYMPH EDEMA DONE BY WOUND NURSE AND OT. PHOTOS ATTACHED TO CHART. PRN PAIN MEDS GIVEN. WILL CONTINUE TO MONITOR.
[2018-09-21 19:24] VITALS: BP 128/78
[2018-09-22 08:00] VITALS: BP 139/73
--- NOTE | 2018-09-22 09:04 | NUR ---
progress pt a/o x4 pleasant and cooperative rating pain a 3 to 4 taking hydrocodone sparingly for pain. lymphedema wraps in place, iv abt's administered as ordered, pt voiding qs continue to monitor plan to dc to rehab
--- NOTE | 2018-09-22 14:34 | NUR ---
QUIET UNEVENTFUL DAY. BILATERAL LE'S WRAPPED BY OT YESTERDAY FROM TOES TO KNEES. DENIES PAIN AT PRESENT. TOLERATING REGULAR DIET. IV ANTIBIOTICS CONTINUED ORDERED. AFEBRILE. VERY PLEASANT AND COOPERATIVE.
[2018-09-22 15:00] VITALS: BP 146/72
[2018-09-22 18:58] VITALS: BP 128/60
--- NOTE | 2018-09-23 02:16 | NUR ---
ASSUMED CARE OF PT AT 1900HRS. PT AOX4 AND CALLS FOR HELP NEEDED. FALL PRECAUTION IN PLACE. PT WAS ABLE TO GET COMFORTABLE AND GET SOME SLEEP THIS SHIFT. NO OTHER S/S OF ACUTE DISTRESS. WILL CONTINUE TO MONITOR.
[2018-09-23 04:38] VITALS: BP 126/69
[2018-09-23 07:16] VITALS: BP 150/74
--- NOTE | 2018-09-23 10:01 | HC ---
[facility] [place] [address] CONSULTATION Name: PATRICK GALAVIZ Room #: 450-[facility] IN M.R.#: [id number] Admission: 09/07/18 ������������������ Attend Phys: Sun Linares MD Discharge: ������������������ Date of : 84 Report #: [id number] THIS REPORT FOR: //name// CC: FAM unknown Sun Linares DATE OF SERVICE: 09/13/2018 HISTORY OF PRESENT ILLNESS: The patient is a 38-year-old -Haitian male who has a chronic nonhealing left lower extremity wound. He has super morbid obesity, obstructive sleep apnea, developed cellulitis of the left lower extremity and to a lesser extent involving the right lower extremity. He has a smaller wound to the right leg, which appears to be healing. He underwent excisional debridement of the left lower extremity venous stasis ulcer on 09/09/2018. He has been on IV antibiotics. I am seeing him in Rehabilitation Medicine consultation. PAST MEDICAL HISTORY: Includes super morbid obesity. Last recorded; height 6 feet 1 inch, 615 pounds. He is noted to have bilateral lower extremity lymphedema. Also recorded obstructive sleep apnea, left knee ACL reconstruction. MEDICATIONS: Please see the full medication listing. ALLERGIES: No known drug allergies. HABITS: No history of tobacco or alcohol abuse. SOCIAL HISTORY: Lives in an apartment with his mom. There are 8 plus 8 steps in, so 16 entry 3 steps, no elevator. He would typically bear crawl up the steps and then he would use the walker to get down the steps. His mother does not work outside the home. Per chart notes, he is noted to be going through a divorce. REVIEW OF SYSTEMS: No current complaints of chest pain, shortness of breath or abdominal discomfort. PHYSICAL EXAMINATION: GENERAL: He is a 38-year-old super morbidly obese, -Haitian male, in no obvious distress. He is alert, pleasant, oriented. VITAL SIGNS: Last recorded temperature 98.6, pulse 114, respirations 18, blood pressure 136/86. HEENT: Appeared to be benign. NEUROLOGIC: Cranial nerves are grossly intact. Facies are symmetric. He has functional range of motion of both upper extremities with strength grade 4+/5. DTRs are 1. He does have super morbid obesity with a large pendulous abdomen. [address] [address] CONSULTATION Name: PATRICK GALAVIZ Room #: [address] [place] [address] IN M.R.#: [id number] Admission: 09/07/18 ������������������ Attend Phys: Sun Linares MD Discharge: ������������������ Date of : 84 Report #: [id number] He has considerable bilateral lower extremity lymphedema. Both lower extremities are wrapped distally. He is able to lift that right lower extremity reasonably well off the bed although he has the pendulous abdomen, which is overlying his proximal thighs and he has to lift up against this. Strength of that right lower extremity is probably a grade 4-/5. Left lower extremity has more discomfort with attempted movement. He can wiggle his toes and he is able to lift the leg with abduction and attempting to try to lift the leg off the bed, although again it is difficult. Functionally, he is min assist with supine to sit. Gait was min assist 50 feet with a front-wheeled walker. He has heavy reliance on both upper extremities. ASSESSMENT: A 38-year-old -Haitian male with the following problem list: 1. Chronic nonhealing left lower extremity venous stasis wound, status post excisional debridement on 09/09/2018. 2. Bilateral lower extremity cellulitis. 3. Super morbid obesity. 4. Considerable bilateral lower extremity lymphedema. 5. Multiple steps into his house. PLAN: The patient thinks that he will be able to return back home and get up the steps over the next day or 2. I will have him continue to work here in physical therapy and occupational therapy in that regard and we will follow along with you. OT will need to evaluate him as well. ��������������������������������������������� <ELECTRONICALLY SIGNED> ���������������������������������������� By: Stevenson Dennis MD ��������������������������������������������� 09/23/18 1001 0814 [id number] Stevenson Dennis MD /[facility]
--- NOTE | 2018-09-23 10:02 | NUR ---
KEVEN reviewed chart and spoke with nursing and attending physician. Pt is ready for discharge pending insurance authorization. KEVEN spoke with Sruthi at [facility], who states that they submitted for insurance authorization on Wednesday afternoon. Awaiting input from insurance at this time. KEVEN met with pt at bedside to provide update. Pt confirms that his preference is [facility]. Final discharge orders/summary will need to be faxed once available. CHart will need to be copied. KEVEN is available to assist as needed with discharge planning. [facility]--
--- NOTE | 2018-09-23 10:36 | NUR ---
PT STABLE THIS MORNING. PT USET THAT LYMPHADEMA NURSE CHANGED TIME FOR WRAPS AND THAT PT WAS EARLY TODAY. PT PALMED PAIN MED GIVEN FOR PRE MEDICATION FOR PT, NURSE REMOVED FROM ON AND WASTED. PT REQUESTED DIFFERENT NURSE, PT HANDED OFF TO ANOTHER NURSE. PT STABLE.
--- NOTE | 2018-09-23 11:19 | NUR ---
PATIENT REPORTED MIDLINE LEAKING. DRESSING REMOVED AND LEAKING AROUND LINE NOTED WITH FLUSH. LINE REMOVED PER POLICY AND PRESSURE HELD X10MN. DRESSING APPLIED. DISCUSSED MIDLINE REPLACEMENT WITH THE PATIENT AND HE VERBALIZED UNDERSTANDING. THE RUE CEPHALIC WAS WIDLEY PATENT. A #4F POWER INJECTABLE MIDLINE WAS PLACED PER POLICY. LINE WAS TRIMMED TO 14CM AND ADVANCED WITHOUT DIFFICULTY. LINE SECURED AND RELEASED FOR USE
[2018-09-23 14:19] VITALS: BP 154/76
--- NOTE | 2018-09-23 16:05 | NUR ---
ASSUMED CARE AT 1100 THIS MORNING. PT. TOLD OT TO COME TO REDRESS HIS LEGS AT 1300. PT. REQUESTED MEDICATION (PAIN) AT 1215 TO 1220. He was given the pain meds as requested. WOUNDS LOOK BETTER ACCORTING TO THE OT PERSON. HE GOT UP AND WENT TO THE BATHROOM. HE THEN GOT UP INTO CHAIR IN HIS ROOM. HIS IV STARTED COMING OUT. IV TEAM NOTIFIED. PT. PUT BACK TO BED AND IV TEAM WORKED ON HIS IV. HIS IV ABO WAS UNABLE TO BE HUNG ON TIME DUE TO THE IV BEING DISLODGED.
--- NOTE | 2018-09-23 16:20 | NUR ---
VASCULAR ACCESS TEAM CALLED TO REINSERT MIDLINE PT ACCIDENTLY PULLED IT OUT. PT WAS PREPPED AND DRAPED FOR MAX BARRIER PRECAUTIONS. ATTEMPTED COLLEEN CEPHALIN,UNSUCCESSFUL, COLLEEN BASILIC DEEP 3CM, LIDOCAINE GIVEN 4FR POWER MIDLINE TRIMMED TO 16CM INSERTED TO 0CM WITH BRISK BR. LINE SECURED AND COBAN APPLIED PER PT REQUEST, LOOSELY. ML RELEASED FOR IMMEDIATE USE PER PROTOCOL TO JIGNESH ANDERSON
[2018-09-23 20:09] VITALS: BP 141/86
--- NOTE | 2018-09-24 00:36 | NUR ---
Patient has lymphadema wraps to bilateral lower extremities. No drainage observed at this time. Patient re-positioned q2 hours with pillow placement. Patient received PRN pain medication at 2328, reports as being effective. Patient watching sports in his room, smiling. Patient legs are elevated at this time. Continue with IV abx. Resting quietly in bed at this time.
[2018-09-24 04:25] VITALS: BP 147/83
[2018-09-24 07:12] VITALS: BP 117/69
[2018-09-24 15:29] VITALS: BP 138/77
--- NOTE | 2018-09-24 18:30 | NUR ---
PT A&OX4, VSS, PAIN IN LOWER LEGS. IV ANTIBIOTICS HUNG ORDERED. PATIENT AWAITING PLACEMENT TO REHAB FACILITY. WILL CONTINUE TO MONITOR.
--- NOTE | 2018-09-25 03:07 | NUR ---
PT RESTING QUIETLY. CONTINUES TO RECEIVE ANTIBIOTICS. TOLERATING WELL. NO C/O PAIN TONIGHT. SLEPT INTERMITTANTLY TO THIS POINT.
[2018-09-25 08:50] VITALS: BP 117/80
--- NOTE | 2018-09-25 17:46 | NUR ---
Assumed pt care this am bilateral lower extremities have lymphedema wraps what are dry and intact. Encouraged pt to walk as he planned but pt decided to do it later tonight. Elegs are elevated. Pt did not complain of pain nor were there any signs of distress noted.
[2018-09-25 20:55] VITALS: BP 143/87
--- NOTE | 2018-09-26 05:52 | NUR ---
Assumed care at 1845. Pt resting in bed. AOX4. VSS. Bilateral lynphedema wraps CDI. Legs elevated. Gave pain medication once. Pt was able to ambulate to bathroom today with X1 assist. No identified needs at the moment. Call light within reach. Will continue to monitor.
[2018-09-26 05:57] LABS: HEMATOCRIT 34.8 % (42.0-52.0); HEMOGLOBIN 11.1 gm/dL (14.0-18.0); MCH 28.9 pg (26.0-34.0); MCHC 31.8 g/dL (28.0-37.0); MCV 90.8 fL (80.0-100.0); RBC 3.84 mil/uL (4.50-6.00); RDW 14.7 % (10.5-14.5); WBC 6.8 thou/uL (4.0-11.0)
[2018-09-26 06:15] LABS: ALBUMIN 2.1 g/dL (3.4-5.0); CALCIUM 8.6 mg/dL (8.5-10.1); CREATININE 0.7 mg/dL (0.7-1.3); PHOSPHORUS 5.3 mg/dL (2.5-4.9)
[2018-09-26 08:54] VITALS: BP 128/78
--- NOTE | 2018-09-26 14:00 | NUR ---
KEVEN reviewed chart and spoke with nursing and attending physician. Pt is ready for discharge to post-acute care. Clinical/therapy updates faxed to [facility] for review. KEVEN notified by [facility] liaison that pt's insurance denied auth for inpt acute rehab due to pt's pre-existing condition at time of insurance becoming active. KEVEN discussed with UR RN and Director of Case Mgmt. Awaiting input from insurance to find out if they will authorize any post-acute care services: HH v. Outpatient. KEVEN is follwoing to assist as needed with discharge planning.
--- NOTE | 2018-09-26 16:26 | NUR ---
cm notified by [facility] that pt has no coverage for inpt nor post care with acute rehab or skilled rt a contracted pre- pre-existing condition clause in his policy. pt became tearful during conversation. passed on that per bs there is appeal that pt can call and dispute the decision for no acute rehab, skilled and inpt denial and letter to be sent to [facility] and pt. will cont following as needed for dc needs.
[2018-09-26 16:32] VITALS: BP 123/84
--- NOTE | 2018-09-26 17:42 | NUR ---
Assumed pt care this am, pt still with bilateral lymphedema wraps that were changed today by OT and wound care team. Pt is scheduled for debridement of the left lower leg wound by DR. Weiss iliana, Pt was informed by CM that his inpt and rehab stay have been denied. Pt was crying and inconsolable, his main concern is the continuation of care given he has not insurance, he is adamant for the procedure iliana. Advised the pt that i will keep the consent on his chart and Dr. Weiss is to come early tomorrow am to discuss options with him regarding his situation, but we will keep on tract with the plan of care (NPO post midnight and to hold enoxaparion). Pt is still using the urinal draining yellow urine, call appropriatly, Pt requested for pain medication post would care. POC followed no other signs of distress have been noted. VS stable
[2018-09-26 19:56] VITALS: BP 139/91
[2018-09-27] VITALS (9 sets, daily range): BP systolic 115–142; BP diastolic 19–94
--- NOTE | 2018-09-27 01:20 | NUR ---
ASSUMED CARE OF PT AT 1900HRS. PT IS AOX4 AND CALLS FOR HELP NEEDED. PT WAS PLACED NPO FROM [place] FOR POSSIBLE PROCEDURE IN THE AM. PT WAS ABLE TO GET COMFORTABLE AND SLEEP PART OF THE SHIFT. NO OTHER S/S OF ACUTE DISTRESS. WILL CONTINUE TO MONITOR.
--- NOTE | 2018-09-27 10:20 | NUR ---
pt out of room for procedure per bedside nurse, unable to check with pt to see if he called [facility] on denial for rehab and inpt stay. will cont following as needed for dc needs.
--- NOTE | 2018-09-27 11:19 | NUR ---
Received awake on bed. On NPO since midnight- pt informed and aware. With bilateral leg dressing- intact, With PICC line at R upper arm- intact and infusing well. A+Ox4. Assisted in ADLs. Able to use urinal to pass urine. Pt scheduled to have debridement of Left leg today- consent not yet signed as night staff handed over this AM that pt has insurance issues, as per report: Dr Weiss to talk to patient first prior to procedure. Vital signs stable. OR staff called to ask report for the pt, informed them that consent not yet signed d/t insurance and upon asking the pt, he mentioned that procedure was not explained to him as well; OR staff to talk to her charge nurse as well as to surgeon, might sign the consent downstairs. A/w CM input. Pt still agreed to have procedure despite ongoing issues. Received phone call from ZULY Lewis asking for pt, mentioned that pt still on OR, she mentioned that she already talked to the pt yesterday and will continue checking pt's status and decision as well.
--- NOTE | 2018-09-27 12:57 | O ---
[facility] [place] [address] OPERATIVE REPORT Name: PATRICK GALAVIZ Room #: [facility] M.R.#: [id number] Admission: 09/07/18 ������������������ Attend Phys: Sun Linares MD Discharge: ������������������ Date of : 84 Report #: [id number] THIS REPORT FOR: //name// CC: FAM unknown Sun Linares DATE OF SERVICE: 09/27/2018 PREOPERATIVE DIAGNOSES: 1. Super morbid obesity. 2. Massive bilateral lower extremity lymphedema. 3. Nonhealing left lower extremity venous stasis wound. POSTOPERATIVE DIAGNOSES: 1. Super morbid obesity. 2. Massive bilateral lower extremity lymphedema. 3. Nonhealing left lower extremity venous stasis wound. PROCEDURE PERFORMED: Excisional debridement of skin, subcutaneous tissue and muscle/fascia of nonhealing left lower extremity venous stasis ulcerative wound, ultimately measuring 66 x 38 cm in dimension (2508 square cm). Preoperative and postoperative wound measurements did not differ substantially as the overall dimensions and the wound did not change. SURGEON: Lillian Weiss M.D. SURGICAL AIDES TEACHER: None. ANESTHESIA: General endotracheal anesthesia. ESTIMATED BLOOD LOSS: Minimal (less than 10 mL). COMPLICATIONS: None appreciated. SPECIMENS: All debrided tissue to pathology. INDICATIONS: The patient is a 38-year-old severely super morbidly obese -[place]or[place] male with massive bilateral lower extremity lymphedema, who developed venous stasis ulceration of the left lower extremity with near circumferential wounds that showed fibrinous necrotic tissue throughout. The patient has undergone prior debridement and has been undergoing aggressive local wound care with significant biofilm remaining in the bed of the wound and indication was therefore for the above-mentioned procedure today. DESCRIPTION OF PROCEDURE: After explaining the risks, benefits and alternatives of the procedure with the patient in detail and obtaining consent, the patient [address] [address] OPERATIVE REPORT Name: GALAVIZPATRICK Room #: 450-P ADM IN M.R.#: [id number] Admission: 09/07/18 ������������������ Attend Phys: Sun Linares MD Discharge: ������������������ Date of : 84 Report #: [id number] was brought to the operating room and placed supine on his hospital bed as he is too large for the operating room table. After conducting a thorough timeout procedure verifying correct patient and procedure, the patient was given general endotracheal anesthesia. Once adequate anesthesia was obtained, his SCDs on his right lower extremity were hooked up to the pneumatic compression device. He was given a preoperative dose of antibiotics in line with the SCIP protocol. The patient's left lower leg was prepped and draped circumferentially in standard surgical sterile fashion and the Acera Surgicalx ultrasonic debridement tool was used to circumferentially debride all nonviable skin, subcutaneous tissue and muscle/fascia from the entirety of the wound. This brought the wound down to healthy vascularized tissue throughout and pressure was held for hemostasis. The patient does have massive lymphedema and overt lymph fluid was seen to drip out of the wound continuously. As such, decision was made again to not apply any extracellular matrix tissue as it was simply washed away with massive lymphedema. Once hemostasis was assured with pressure and electrocautery, the wound was dressed with Xeroform, 4 x 4s, Telfa, ABDs and circumferential Kerlix with Dima wrap compression. At the end of the procedure, all instrument, needle and sponge counts were correct. The patient tolerated the procedure without incident, was awakened in the operating room and transitioned to the recovery room in stable condition with no apparent complications. ��������������������������������������������� <ELECTRONICALLY SIGNED> ���������������������������������������� By: Lillian Weiss MD, FACS ��������������������������������������������� 09/27/18 1257 1241 [id number] Lillian Weiss MD, FACS /nt
--- NOTE | 2018-09-27 13:28 | NUR ---
KEVEN reviewed chart and spoke with attending physician. Pt is currently off the unit having surgical debridement. Pt to call his insurance regarding his current policy. Discussed case with rehab care assistant and information services consultant. Pt may be able to go to for acute rehab, if insurance does not authorize post-acute care. KEVEN is following to assist as needed with discharge planning.
--- NOTE | 2018-09-28 00:50 | NUR ---
Assumed care at 1845. Pt resting in bed. AOX4. VSS. Had an I&D done today LLE. Dressing CDI. Neuro intact. Patient hasnt left the bed this shift. Been using a urinal. Gave pain medication once. No identified needs at the moment. Will continue to monitor.
[2018-09-28 04:30] VITALS: BP 122/87
[2018-09-28 07:19] VITALS: BP 109/80
[2018-09-28] MEDS ORDERED: ACETAMINOPHEN325 M1 PO (10:07)
[2018-09-28] MEDS ORDERED: NEURONTIN 300300 M1 PO (10:07)
--- NOTE | 2018-09-28 11:45 | NUR ---
KEVEN reviewed chart and spoke with nursing and attending physician. Pt had debridement yesterday of LLE wound. KEVEN met with pt at bedside this morning to discuss discharge plans. Pt states he will be calling his insurance today to discuss how to file an appeal. Pt prefers to go to rehab. Pt has steps into his apartment and would need assistance. KEVEN discussed with Director of Case Mgmt and Director of Therapy. KEVEN is following to assist as needed with discharge planning.
--- NOTE | 2018-09-28 14:10 | NUR ---
WOUND CARE FOLLOW UP; ROUNDING WITH DR KIMMY DAO AND GABINO PRESIDENT ERGONOMIC CONSULTING. THE WOUND IS COMLETELY CLEAN, BEEFY RED TISSUE. PAIN IS DRAMATICALLY DECREASED. THE PATIENT WAS SEEN IN THE OR YESTERDAY. SEE OR REPORT. RECOMMENDATION; CONTINUE M/W/F PRN DISCUSSED WITH JUSTIN
[2018-09-28 14:47] VITALS: BP 129/78
--- NOTE | 2018-09-28 14:49 | NUR ---
Nutrition followup: Pt continues to eat 100% of meals, HBV protein sources all trays and Ensure max BID. S/P repeat LLE wound debridement yesterday. Wound care indicates wound showing improvement. Pt now on low fat diet restriction. Variable weights. Plan outpatient bariatric workup. Discharge plan uncertain. Follow weekly.
[2018-09-28 20:12] VITALS: BP 234/80
--- NOTE | 2018-09-28 20:34 | NUR ---
Received awake on bed. Due medications given as prescribed- able to swallow tablets w/o difficulty. A+Ox4. Able to use urinal to pass urine. Pt with bilateral leg dressings. Pt seen by Dr Thakur today- to discharge pt today, a/w CM input re: SNF transfer or possible Home with HH. With midline at Right upper arm- intact and flushing well. With relative at bedside. Complained of pain, due medications given as prescribed. Pt seen by certified medical dosimetrist today. Vital signs stable. Falls risk- falls bundle in place. Pt seen by Wound care team and Lymphedema team- they did leg dressing today; unable to take a photo of the wound today as I was currently doing dressing change and ostomy change to another pt as they are currently changing the patient's wounds dressing, when I came back to the pt's room, dressings were already in place. Received phone call from Lisseth(5N) re: transfer of pt. Will accept the pt, and to transfer on 2nd shift. Discharge instructions given, Midline discontinued- checked and pt is not any IV meds, removed as per protocol. Report given to N staff: Misty Pt's personal belongings, prescriptions and chart copy transferred together with pt. Transported via bariatric bed, bariatric recliner sent as well. Unable to take d/c photos for wound as Lymphedema wraps in place- N staff informed.
== END 2018-09-28 21:02 | DRG 580 ==
LOC: 4W 14:54
PROVIDERS: Hospitalist; Internal Medicine Infectious Disease; Nurse Practitioner Family; ADMIT Internal Medicine
PROC: 0KBT0ZZ Excision of Left Lower Leg Muscle, Open Approach (ICD-10-PCS; principal; 2018-09-09)
PROC: 05HY33Z Insertion of Infusion Device into Upper Vein, Percutaneous Approach (ICD-10-PCS; 2018-09-14)
PROC: 05HY33Z Insertion of Infusion Device into Upper Vein, Percutaneous Approach (ICD-10-PCS; 2018-09-23)
PROC: 0KBT0ZZ Excision of Left Lower Leg Muscle, Open Approach (ICD-10-PCS; 2018-09-27)
DX: L03.116 Cellulitis of left lower limb (principal); L97.929 Non-pressure chronic ulcer of unspecified part of left lower leg with unspecified severity; E46 Unspecified protein-calorie malnutrition; Z68.45 Body mass index [BMI] 70 or greater, adult; G47.33 Obstructive sleep apnea (adult) (pediatric); E66.01 Morbid (severe) obesity due to excess calories; I10 Essential (primary) hypertension; I89.0 Lymphedema, not elsewhere classified; I87.8 Other specified disorders of veins; L60.3 Nail dystrophy; B35.1 Tinea unguium; D72.829 Elevated white blood cell count, unspecified; J30.9 Allergic rhinitis, unspecified; D63.8 Anemia in other chronic diseases classified elsewhere; Z79.899 Other long term (current) drug therapy
CPT/HCPCS: 10047; 27000; 50010; 50101; 50386; 50403; 57091; 57119; 57120; 62110; 62850; 70005

== ENCOUNTER → 2018-09-07 | Outpatient (CLI) | payer OTHER | LOC: HYPER 06:49 | DX: L97.812 Non-pressure chronic ulcer of other part of right lower leg with fat layer exposed (principal); L97.222 Non-pressure chronic ulcer of left calf with fat layer exposed; I89.0 Lymphedema, not elsewhere classified; R60.0 Localized edema; I87.2 Venous insufficiency (chronic) (peripheral); E66.01 Morbid (severe) obesity due to excess calories; Z68.45 Body mass index [BMI] 70 or greater, adult; Z79.891 Long term (current) use of opiate analgesic ==

== ENCOUNTER 2018-09-28 16:40 | Inpatient (IN) | payer BC, OTHER ==
[~2018-09-28] VITALS: Ht 185.4 cm; Wt 281.2 kg
[~2018-09-28 16:40] MED LIST changes: +ACETAMINOPHEN325 M1 PO
[2018-09-28 21:11] VITALS: BP 148/94
--- NOTE | 2018-09-29 00:41 | NUR ---
PT ADMITTED TO 5N FROM 4W THIS EVENING. PT ORIGINALLY ADMITTED TO THE HOSPITAL FOR EM LE CELLULITIS AND A NONHEALING VENOUS STATIS WOUND. BOTH LEGS FROM THE KNEES DOWN HAVE BEEN WRAPPED TODAY BY THE LYMPH EDEMA NURSE. DSGS ARE TO BE KEPT ON. ADMIT HX AND ASSESSMENT COMPLETED. MEDS GIVEN ORDERED AND WELL TOLERATED. FALL PRECAUTIONS IN PLACE. BARIATRIC BED AND CHAIR IN ROOM. SUPPORTIVE MOTHER AT BEDSIDE. PT IS A CONFINDENTIAL PT. CURRENTLY GOING THROUGH A VERY DIFFICULT DIVORSE. PT WANTS TO GET STRONGER AND HEALTHY WHILE HERE. SLEEPING WELL AT THIS TIME. VOIDING LARGE AMOUNT OF YELLOW URINE PER URINAL. WILL CONTINUE TO MONITOR FREQUENTLY.
[2018-09-29 06:01] LABS: HEMATOCRIT 34.7 % (42.0-52.0); HEMOGLOBIN 11.3 gm/dL (14.0-18.0); MCH 29.2 pg (26.0-34.0); MCHC 32.4 g/dL (28.0-37.0); RBC 3.86 mil/uL (4.50-6.00); RDW 14.9 % (10.5-14.5)
[2018-09-29 06:15] LABS: CALCIUM 8.9 mg/dL (8.5-10.1); CREATININE 0.7 mg/dL (0.7-1.3); POTASSIUM 4.1 mmol/L (3.5-5.1)
[2018-09-29 07:25] VITALS: BP 139/86
--- NOTE | 2018-09-29 08:40 | NUR ---
CHART REVIEW, PT UP WORKING WITH THERAPY AND HIS MOM KIRSTIE IS HERE WELL. INTRO TO TEAM MEETING AND DCP. PT A & O X 4. " LIVE WITH MOM IN APARTMENT, 2 FLIGHTS OF 9 STEPS FOR TOTAL 18 STEPS, UNABLE TO DO STEPS KNOW. PRIOR TO HOSPITAL WAS INDEPENDENT WITH ADL. PT WAS BEING SEEN WITH OUTPT WOUND CLINIC AT [facility]"/PT. WILL CONT FOLLOWING NEEDED FOR DC NEEDS.
--- NOTE | 2018-09-29 12:57 | NUR ---
Nutrition: pt admitted with chronic nonhealing left LE venous stasis wound with cellulitis and lymphedema. S/P repeat debridement on acute. Consulted for healthy diet choices. Followed pt on acute and had refused diet educations. Mother present at visit, questions answered/handout provided however pt plans to pursue bariatric surgery workup at D/C. Extreme class 3 obesity, BMI 81. Orders meals, 100% intake and double portions of meats at times. Portion control, low fat and high fiber guidelines reviewed. Drinks Ensure max BID and will also drink Karlos. Currently on regular diet, high protein and low fat guidelines. Could consider adding calorie controlled guidelines. Low risk.
--- NOTE | 2018-09-29 18:37 | NUR ---
ASSUMED CARE AT APPROX 0715. PATIENT A/O X4. C/O BLE PAIN, PRN TYLENOL ADMINSITERED, PATIENT REFUSED HYDROCODONE. VSS. PARTICIPATED IN THERAPY. BECAME ANXIOUS, AGITATED. PATIENT RAISED VOICE AT THERAPIST, NURSE, AND HIS MOTHER. BARIATRIC COMMODE AND WHEELCHAIR OBTAINED FOR PATIENT. PATIENT ADMITTED WITH BARIATRIC BED AND RECLINER, CS NOTIFIED. CONFIRMED WITH LYMPHEDEMA OT THAT PATIENT WILL HAVE DRESSINGS CHANGED MW. DR. NORRIS'S OFFICE CALLED TO RE-CONSULT/SURGEON TO FOLLOW WHILE ON REHAB. FALL PRECAUTIONS IN PLACE. PATIENT RESTING IN BED, MOTHER AT BEDSIDE. ROUNDED ON HOURLY.
[2018-09-29 20:48] VITALS: BP 127/81
--- NOTE | 2018-09-30 00:15 | NUR ---
PATIENT SITTING UP IN BED. BLE'S WRAPPED IN VINITA WRAP AND TO BE UNWRAPPED AND WOUND TO EACH LEG TO BE CLEANED AND REDRESSED WITH DANKIN'S SOLUTION BY LYMPHODEMA THERAPIST AT 0915 TOMORROW. PATIENT'S MOM, KIRSTIE IS STAYING THE NIGHT ON A COT WITH PATIENT. PATIENT WITHOUT C/O PAIN. ENCOURAGED PATIENT TO REPOSITION SELF AT LEAST EVERY 2 HOURS. PATIENT SLEEPING WITH CPAP ON. PATIENT'S LCTA, HEART REGULAR AND BOWEL SOUNDS ACTIVE. ABDOMEN SOFT. DENIES PAIN AT THIS TIME. WILL CALL FOR NURSE IF HE NEEDS ASSISTANCE. PATIENT SLEEPING SOUNDLY.
[2018-09-30 07:28] VITALS: BP 147/77
--- NOTE | 2018-09-30 10:30 | NUR ---
WOUND CARE FOLLOW UP; ROUNDING WITH DR DAO AND GABINO TREAD BUILDER. THE PERIWOUND IS MACERATED TODAY. THE WOUNDBED IS A BURGUNDY COLOR TODAY. PAIN CONTINUES TO DECREASE. NO ODER OR ANY OTHER S/S OF INFECTION. RECOMMEDNATION; CONTINUE PURACOL AG, XEROFORM, ABD SECURE WITH KERLIX AND LYMPHEDEMA WRAPS M/W/F DISCUSSED WITH JUSTIN
[2018-09-30 19:10] VITALS: BP 132/83
--- NOTE | 2018-09-30 19:52 | NUR ---
ASSUMED CARE AT APPROX 0715. PATIENT A/O X4. C/O PAIN IN LE WITH AMBULATION AND DRESSING CHANGES. PREMEDICATD FOR MWF DRESSING CHANGE THIS DATE. PATIENT REPORTED BREAKTHROUGH PAIN- PAIN MED ORDERS ADJUSTED PER HOSPITALIST. VSS. PARTICIPATED IN THERAPY. FALL PRECAUTIONS IN PLACE. ABLE TO MAKE NEEDS KNOWN. MOTHER AT BEDSIDE. ROUNDED ON HOURLY. RESTING IN BED AT CHANGE OF SHIFT.
--- NOTE | 2018-10-01 03:15 | NUR ---
PATIENT ALERT AND ORIENTED X4. REMAINED IN BED THROUGHOUT THE NIGHT. MOTHER AT BEDSIDE THROUGHOUT THE NIGHT. DENIES PAIN. COOPERATIVE WITH CARE. DRESSINGS TO LOWER LEGS DRY AND INTACT. WILL MONITOR.
--- NOTE | 2018-10-01 07:41 | NUR ---
ASSUMED CARE AT 0700. PATIENT IS ALERT AND ORINETED X4. MOTHER IN ROOM. PATIENT WILEY'S. PATIENT HAS BILATERAL LEG WRAPS ON. LUNGS ARE CLEAR. ABD IS SOFT, OBESE. PATIENT UP WITH ASSIST WITH GAIT BELT AND WALKER. IN BED FOR BREAKFAST. FALL AND SAFETY PROTOCOLS IN PLACE. C/O PAIN IN L.E.'S. MEDICATED WITH VICODIN PRIOR TO P.T. CONTINUES TO PROGRESS SLOWLY TOWARDS D/C GOALS. WILL CONTINUE TO MONITER.
[2018-10-01 11:28] VITALS: BP 138/71
[2018-10-01 19:45] VITALS: BP 148/77
--- NOTE | 2018-10-02 03:23 | NUR ---
ASSUMED CARE FROM DAY SHIFT, PT RESTING IN BED , MOTHER AT BEDSIDE, PT DENIES PAIN , PT C/O SKIN ON BACK OF UPPER THIGH WERE EXCORATED , BARRIER CREAM APPLIED , DISCUSSED PLAN OF CARE WITH PT AND MOTHER BOTH VERBALIZED UNDERSTANDING AND AGREEABLE. PT RESTED WELL THROGUHOUT HOURLY ROUNDS, WILL CONTINUE CURRENT PLAN OF CARE.
[2018-10-02 09:41] VITALS: BP 149/85
--- NOTE | 2018-10-02 16:01 | NUR ---
AAOX4 PLEASANT AND COOPERATIVE. MOTHER AT BEDSIDE MOST OF DAY. WHEN MOTHER LEFT HE ORDERED DONUT DELIVERED FROM [employer]. AMBULATED WITH PT WITH GOOD TOLERATION. LEGS WRAPPED BILAT WITH VINITA WRAP. EATS 100% OF MEALS.
[2018-10-02 19:12] VITALS: BP 138/78
--- NOTE | 2018-10-03 01:03 | NUR ---
PT TRANSFERRING TO BEDSIDE COMMODE WITH GAIT BELT, WALKER AND MAX ASSIST AND IS TOLERATING FAIR. DENIES NEED FOR PAIN MEDICATION. HAD HUGE BM THIS SHIFT. RESTING COMFORTABLY. NO NEEDS VOICED. CALL LIGHT WITHIN REACH. WILL CONTINUE TO PROVIDE FREQUENT OBSERVATION.
--- NOTE | 2018-10-03 07:19 | HC ---
[facility] [place] [address] CONSULTATION Name: PATRICK GALAVIZ Room #: 504 ADM IN M.R.#: [id number] Admission: 09/28/18 ������������������ Attend Phys: Stevenson Dennis MD Discharge: ������������������ Date of : 84 Report #: [id number] THIS REPORT FOR: //name// CC: Stevenson Dennis FAM unknown DATE OF SERVICE: 10/01/2018 ATTENDING PHYSICIAN: Stevenson Dennis MD. MANAGEMENT INTERNSHIP: Luis Carlos Hankins, PhD. CLINICAL PRESENTATION: The patient is a 38-year-old male admitted to the rehabilitation unit at [facility] for comprehensive inpatient rehabilitation program. The patient was initially admitted to the hospital with chronic nonhealing left lower extremity wound. He has super morbid obesity, obstructive sleep apnea, cellulitis of the left lower extremity. He also has a smaller wound on his right leg, which has been gradually improving. He is reported to have undergone debridement of the nonhealing left lower extremity on 09/27/2018. He has significant deficits in functional mobility. Prior to this most recent hospitalization, the patient was living with his mother. He is and in the process of divorce. He was noted to have had a weight of 615 pounds prior to this recent hospitalization. Divorce is contributing to increased stress as he is worried about the wellbeing of his child. The patient is a high school graduate. He reports having had 3-1/2 years of college. 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 However, he states he has not worked since 12/2017 because of health concerns. TECHNIQUES UTILIZED: Clinical interview, review of medical records, staff consultation and behavioral observation, mini mental status exam 2 standard version, family interview -- mother. EXAMINATION FINDINGS: The patient was alert and cooperative with the assessment. There is no evidence of aphasia. His thoughts are logical and goal oriented. There is no evidence of thought disorder. He does not report auditory or visual hallucinations. There is no suicidal ideation. He describes his symptoms to include anxiety and depression. His mood appeared anxious as he is concerned about the wellbeing of his son. He does not report difficulty with sleep, appetite, memory or cognitive functioning. He also has no history of substance abuse. His performance on the MMSE 2 brief version is 15 of 16, which is within normal limits. He is well oriented and immediate recall was satisfactory. Performance on the MMSE 2 standard version is within normal limits with a raw [facility] [address] [place] [address] CONSULTATION Name: PATRICK GALAVIZ Room #: 504-1 [facility] IN .R.#: [id number] Admission: 09/28/18 ������������������ Attend Phys: Stevenson Dennis MD Discharge: ������������������ Date of : 84 Report #: [id number] score of 28/30. The patient showed deficits in visual spatial construction. Clock drawing was within normal limits. The patient's neurocognitive functioning appears well maintained. He is presenting with increased anxiety and depression. Variability in mood appears situational. However, longstanding severe obesity also suggests an underlying eating disorder. DIAGNOSTIC IMPRESSION: Adjustment disorder with anxiety and depressed mood. Eating disorder -- super morbid obesity. RECOMMENDATIONS: The patient will benefit from outpatient psychotherapy to assist in adjustment to both the divorce as well as his medical condition. Encouraging increased independence will also benefit his overall adjustment. The use of relaxation techniques and cognitive behavior therapy would also be of benefit to assist in both the adjustment to his divorce as well as general medical concerns. A dietary consult and instructions for outpatient physical therapy for development of an exercise program when he returns home. Thank you very much for allowing me to provide the consultation on this patient. ��������������������������������������������� <ELECTRONICALLY SIGNED> ���������������������������������������� By: Luis Carlos Hankins, PhD ��������������������������������������������� 10/03/18 0719 1705 0130 Luis Carlos Hankins, PhD /nt
--- NOTE | 2018-10-03 09:58 | NUR ---
WOUND CARE FOLLOW UP; ROUNDING WITH ALAN PATIENT CASE MANAGER AND GABINO WINDOWS CONSULTANT. A NEW WOUND WAS IDENTIFIED TO THE RIGHT POSTIERIOR THIGH. S/S CONSISTANT WITH FRICTION SHEARING WITH LINIAR TEARS TO THE AREA. SCANT SEROSANGINOUS DRAINAGE NOTED. THE LEFT POSTERIOR THIGH HAD MORE DRAINAGE ARE IDEOPATHIC. RECOMMENDATIONS; 1-RIGHT POSTIERIOR THIGH; ZGUARD DAILY/PRN 2-LLE ; ADD DRAWTEX TO DRESSING CHANGE DISCUSSED WITH RN
--- NOTE | 2018-10-03 11:26 | NUR ---
Assumed care of pt at 0700. Pt a&ox4. Worked with physical therapy and walked in the hallway with walker and gaitbelt. Prn pain meds administered prior to physical therapy. Pt tearful in the restroom when working with OT because he was unable to stand up from wheelchair. Helped OT to stand patient up. Doing better at this time. Call light within reach. Will continue to monitor and assist with needs.
--- NOTE | 2018-10-03 12:12 | HC ---
[facility] [place] [address] [place] [address] CONSULTATION Name: PATRICK GALAVIZ Room #: 504-1 ADM IN M.R.#: [id number] Admission: 09/28/18 ������������������ Attend Phys: Stevenson Dennis MD Discharge: ������������������ Date of : 82 Report #: [id number] THIS REPORT FOR: //name// CC: Stevenson COTTON unknown DATE OF SERVICE: 09/29/2018 REFERRING PROVIDER: Stevenson Dennis MD. REASON FOR CONSULTATION: Lower extremity wounds. HISTORY OF PRESENT ILLNESS: The patient is a 38-year-old -Grenadian male who is super morbidly obese and has chronic nonhealing bilateral lower extremity wounds that are worse on his left lower extremity versus the right. The patient has massive bilateral lower extremity lymphedema and has undergone multiple debridements of his lower extremity wounds, with significant improvement as of late. The patient has been admitted to the inpatient rehabilitation [facility], and I am asked to evaluate for ongoing care of his lower extremity wounds. PAST MEDICAL HISTORY: Super morbid obesity, massive bilateral lower extremity lymphedema, obstructive sleep apnea, prior left knee ACL reconstruction. MEDICATIONS: Neurontin, Colace, acetaminophen p.r.n. and quarter strength Dakin's for topical dressing changes. ALLERGIES: No known drug allergies. SOCIAL HISTORY: The patient does not utilize tobacco or illicit drug use. Drinks alcohol only occasionally in social situations and never to excess. Lives with his mother. FAMILY HISTORY: Reviewed and noncontributory. REVIEW OF SYSTEMS: GENERAL: The patient denies nocturnal fevers or chills. HEENT: No change in vision, change in hearing. NECK: No swelling or difficulty swallowing. HEART: No chest pain or palpitations. LUNGS: No cough or shortness of breath. ABDOMEN: No nausea, no vomiting. GENITOURINARY: No dysuria or hematuria. ENDOCRINE: No polyuria, polydipsia. HEMATOLOGIC: No history of bleeding or easy bruising. EXTREMITIES: No history weakness or limited range of motion. NEUROLOGIC: No history of syncope or near syncopal episodes. [facility] [address] [place] [address] CONSULTATION Name: PATRICK GALAVIZ Room #: 504 ADM IN .R.#: [id number] Admission: 09/28/18 ������������������ Attend Phys: Stevenson Dennis MD Discharge: ������������������ Date of : 82 Report #: [id number] PSYCHIATRIC: No history of anxiety or depression. SKIN AND INTEGUMENT: Longstanding history of bilateral lower extremity wounds with some edema. PHYSICAL EXAMINATION: VITAL SIGNS: Temperature 98.0, pulse 96, respirations 16, blood pressure 139/86. He stands 6 feet 1 inch tall and weighs 615 pounds. GENERAL: Alert and oriented, in no acute distress. HEENT: Normocephalic, atraumatic. Pupils equal, round, reactive to light. NECK: Supple, without lymphadenopathy. Trachea midline. HEART: Regular rate and rhythm. LUNGS: Clear to auscultation bilaterally. ABDOMEN: Soft, nontender, nondistended. He is super morbidly obese. GENITOURINARY: Normal external male genitalia. EXTREMITIES: No clubbing or cyanosis. He does have massive bilateral lower extremity lymphedema. NEUROLOGIC: Cranial nerves 2-12 are grossly intact. PSYCHIATRIC: Normal mood and affect. SKIN AND INTEGUMENT: Bilateral lower extremity wounds are both currently dressed. The dressings are clean and were not taken down as they were just replaced. LABORATORY AND X-RAY DATA: CBC shows white blood cell count of 6000, hemoglobin 11.3, platelets 283,000. Creatinine 0.7. ASSESSMENT AND PLAN: A 38-year-old super morbidly obese -Grenadian male with massive bilateral lower extremity lymphedema, longstanding nonhealing wounds of the bilateral lower extremities. The patient is undergoing aggressive local wound care with lymphedema therapy. I recommend continuation of this at this time. The patient should continue with all aggressive inpatient rehabilitative efforts. Continue to offload his wounds and improve his overall health condition. He desperately necessitates weight loss for long-term resolution of his comorbid conditions, and I will continue working with him on an outpatient basis to get him to that point. He may necessitate repeat debridement at some point, and we will follow while hospitalized along with the wound care team for optimization of his wounds. I sincerely appreciate this consult and will again leave any further recommendations in the patient's chart as appropriate. ��������������������������������������������� <ELECTRONICALLY SIGNED> ���������������������������������������� By: Lillian Weiss MD, FACS ��������������������������������������������� 10/03/18 1212 1217 1349 Lillian Weiss MD, FACS /nt
[2018-10-03 20:00] VITALS: BP 144/83
--- NOTE | 2018-10-04 04:12 | NUR ---
ASSUMED CARE AT 1900, ASSESSMENT COMPLETED. PT REPORTS MILD ACHY, STIFF PAIN IN LEFT LEG R/T THERAPY; DECLINE PAIN MEDS WHEN OFFERED BUT STATED HE WOULD CALL LATER FOR A TYLENOL IF HE NEEDED IT. DENIES SOB OR NAUSEA. EDUCATED ABOUT USING O2 OVERNIGHT SINCE HE DID NOT HAVE HIS CPAP UNIT; PT STATED HE WOULD TRY THE O2 BY NC; SET UP TUBING AND TURNED ON, PLACED TUBING NEAR PT SO HE COULD PUT IT ON WHEN READY TO GO TO SLEEP. HAVING DARK YELLOW URINARY OUTPUT. GIVEN SNACK OF L[place]ON [place] SODA AND DARWIN CRACKERS. PER NOTE/PT REQUEST, HAVE AVOIDED DISTURBING PT AFTER 2300 UNLESS HE CALLS. NO OTHER CONCERNS, WILL CONTINUE TO MONITOR.
[2018-10-04 07:45] VITALS: BP 135/84
--- NOTE | 2018-10-04 08:17 | NUR ---
ASSUMED CARE AT 0700. PATIENT IS ALERT AND ORIENTED X4. PATIENT WILEY'S. LEGS ARE WRAPPED. DIRECTOR AGENCY & STRATEGIC PARTNERSHIPS ARE EQUAL. LUNGS ARE CLEAR. ABD IS SOFT WITH BSX4. UP WITH WALKER AND GAIT BELT. VOIDS JANENE COLORED URINE PER URINAL. UP IN BED FOR MEALS. FALL AND SAFETY PROTOCOLS IN PLACE. C/O L.E. PAIN. MEDICATED WITH PRN PAIN MED. CONTINUES TO PROGRESS TOWARDS D/C GOALS. WILL CONTINUE TO MONITER.
--- NOTE | 2018-10-04 13:10 | NUR ---
team meeting, recommendation: re team, cont working with therapy on stairs.
[2018-10-04 19:25] VITALS: BP 150/82
--- NOTE | 2018-10-05 02:45 | NUR ---
ASSESSMENT: PT REMAIN ALERT AND ORIENT TIMES FOUR. REQUESTED TO NOT TO BE BOTHERED BETWEEN [phone]. VOIDING PER URINAL. UO DARK JANENE. RETEAMED ON . LEFT LEG WITH DRESSING INTACT. NO BM. VSS, AFEBRILE. SLOW PROGRESS TOWARDS DC GOALS, WILL CONTINUE TO MONITOR.
[2018-10-05 07:30] VITALS: BP 140/89
--- NOTE | 2018-10-05 10:08 | NUR ---
ASSUMED CARE AT 0700. PATIENT IS ALERT AND ORIENTED X4. PATIENT WILEY'S, STADIUM MANAGER ARE EQUAL. LUNGS ARE CLEAR, ABD IS SOFT WITH BSX4. PATIENT IS MORBIDLY OBESE. PATIENT HAS 3+ EDEMA IN HIS LOWER EXTREMITIES. WOUND CARE TEAM AND LYMPHEDEMA NURSE HERE TO CHANGE DRESSINGS TO L.E.'S. PATIENT USES URINAL TO VOID JANENE COLORED URINE. UP IN W/C TO DINING ROOM FOR BREAKFAST. FALL AND SAFETY PROTOCOLS IN PLACE. C/O PAIN IN HIS LOWER EXTREMITIES. MEDICATED BY NOC NURSE WITH PRN PAIN MED. CONTINUES TO PROGESS TOWARDS D/C GOALS. WILL CONTINUE TO MONITER.
--- NOTE | 2018-10-05 12:10 | NUR ---
LATE ENTRY CLARIFICATION FOR 10/04/18 PER REPORT BY APOORVA AWAD PCT: PT DID NOT HAVE SUPPLEMENTS ON HIS TRAY, AND DID NOT CONSUME ENSURE MAX OR OCTAVIO FOR ANY MEALS.
--- NOTE | 2018-10-05 15:05 | NUR ---
Nutrition followup on pt admit to rehab unit with chronic nonhealing left LE venous stasis wound with cellulitis and lymphedema. S/P repeat debridements. Continues to eat 100% most meals along with supplements, ensure max and isaac. Planning to pursue bariatric surgery as outpatient. Focuses on HBV protein at meals. Low nutrition risk.
[2018-10-05 19:05] VITALS: BP 132/91
--- NOTE | 2018-10-06 05:24 | NUR ---
PARTIENT ALERT AND ORIENTED X4. DRESSINGS ON EM LOWER EXT D/I. DENIES PAIN. SLEPT OFF AND ON DURING NIGHT.
[2018-10-06 07:19] VITALS: BP 130/85
--- NOTE | 2018-10-06 14:48 | NUR ---
ASSUMED CARES AT 0700. PT AWAKE, ALERT AND ORIENTED*4. DENIES PAIN. VITALS REMAIN STABLE. LS WHEEZY AND DIMINISHED THIS AM, PT DENIES SOB, SATS >92% ON RA. ABDOMEN SOFT AND OBESE, PT HAD *2 XLARGE BM TODAY, HARD, STOOL SOFTENOR ADMINISTERED. PT UP WITH 1 SBA, GAITBELT AND WALKER AND TOLERATED WELL. Q1H VISUAL CHECKS. CALL LIGHT WITHIN REACH. FALL PRECAUTIONS IN PLACE
[2018-10-06 19:05] VITALS: BP 160/90
--- NOTE | 2018-10-06 23:28 | NUR ---
PT ASSESSMENT COMPLETED AND VSS. MEDS GIVEN ORDERED AND WELL TOLERATED. FALL PRECAUTIONS IN PLACE. PT DENIES NEEDS. SLEEPING WELL. REPOSITIONING SELF. WILL CONTINUE TO MONITOR FREQUENTLY.
[2018-10-07 07:57] VITALS: BP 135/84
--- NOTE | 2018-10-07 11:05 | NUR ---
PT AT THIS TIME UP WITH THERAPY. ATE BREAKFAST, HAD PRN PAIN MED AND HAD LYMPEDIMIA WRAPS TO EM [facility] WOUND CARE TEAM AND DOCTOR PRESENT. PT ALERT XS 4 PLEASANT WITH CARE. PT WORKING WITH THERAPY. WILL CONTINUE TO MONITOR PATIENT IS MIN CARE WITH SBA.
--- NOTE | 2018-10-07 14:40 | PLAN ---
[facility] [place] [address] [place] [address] REHAB UNIT PLAN OF CARE Name: PATRICK GALAVIZ Room #: 504-1 ADM IN M.R.#: [id number] Admission: 09/28/18 ������������������ Attend Phys: Stevenson Dennis MD Discharge: ������������������ Date of : 82 Report #: [id number] THIS REPORT FOR: //name// CC: Stevenson Dennis [facility] unknown DATE OF SERVICE: 09/30/2018 PROGRESS NOTE/OVERALL PLAN OF CARE SUBJECTIVE: The patient is seen back today in followup. He is in no distress. Temperature 98.3, pulse 89, respirations 18, blood pressure 147/77. He is min assist with sit to stand. Gait 3 feet front-wheeled walker. In occupational therapy, lower body dressing is being assessed. He has ambulated up to 40 feet min assist with a front-wheeled walker. Lower extremities are dressed as per wound care. ASSESSMENT: 1. Chronic nonhealing left lower extremity venous stasis wound, status post excisional debridement x 2. 2. Bilateral lower extremity cellulitis. 3. Super morbid obesity. 4. Bilateral lower extremity lymphedema. 5. Multiple steps in the household. PLAN: The overall plan of care is based on the preadmission screen, post-admission physician evaluation, and information garnered from therapy assessments. 1. Estimated length of stay is probably 10 days to 2 weeks. 2. Medical prognosis is reasonably good. 3. Anticipated interventions includes the interdisciplinary acute inpatient rehabilitation program with full maximizing his functional independence. He can hopefully return back to his prior living situation. 4. Anticipated functional outcomes would be for the patient to become modified independent with transfers, mobility, and ADLs and in his case to be able to go up and down steps, so that he can return back to the home setting. 5. Discharge destination would be back home where he lives with his mother. 6. Expected therapy by discipline includes PT and OT 1-1/2 hours per day each 5 days a week throughout the duration of the acute inpatient rehabilitation stay. ��������������������������������������������� <ELECTRONICALLY SIGNED> ���������������������������������������� By: Stevenson Dennis MD ��������������������������������������������� 10/07/18 1440 0902 1218 Stevenson Dennis MD /[facility]
--- NOTE | 2018-10-07 14:40 | H ---
[facility] [place] [address] HISTORY AND PHYSICAL Name: PATRICK GALAVIZ Room #: 504-1 ADM IN ..#: [id number] Admission: 09/28/18 ������������������ Attend Phys: Stevenson Dennis MD Discharge: ������������������ Date of : 82 Report #: [id number] THIS REPORT FOR: //name// CC: Stevenson Dennis [facility] unknown DATE OF SERVICE: 09/29/2018 HISTORY AND PHYSICAL/POSTADMISSION PHYSICIAN EVALUATION HISTORY OF PRESENT ILLNESS: A 38-year-old male who was originally admitted on 09/07/2018 with a chronic nonhealing left lower extremity wound. He has super morbid obesity, obstructive sleep apnea, cellulitis of left lower extremity and to a lesser extent involving the right lower extremity. He had a smaller wound to the right leg, which has gradually improved as far as healing. He underwent excisional debridement of the left lower extremity venous stasis ulcer on 10/09/2018. He has been on IV antibiotics. He then underwent further debridement of the nonhealing left lower extremity wound on 09/27/2018. He has significant difficulty with functional mobility and especially needs assistance as far as ambulation and is unable to go up and down steps. He has been admitted for acute in-hospital inpatient rehabilitation. PAST MEDICAL HISTORY: Includes super morbid obesity. He has had a recorded height of 6 feet 1 inches, 615 pounds earlier during his prior hospitalization. He is noted to have bilateral lower extremity lymphedema. He also has a history of obstructive sleep apnea and left knee ACL reconstruction. MEDICATIONS: Please see the full medication listing. ALLERGIES: No known drug allergies. HABITS: No history of tobacco or alcohol abuse. SOCIAL HISTORY: Lives in an apartment with his mother. There are 8+8 steps, 16 entry steps, no elevator. He would typically bear crawl up the steps and that he would use the walker to get down the steps. The mother does not work outside the home. She is noted to be going through a divorce. REVIEW OF SYSTEMS: No complaints of chest pain, shortness of breath or abdominal discomfort. PHYSICAL EXAMINATION: GENERAL: A 38-year-old super morbidly obese -Danish male in no obvious distress. VITAL SIGNS: Last recorded weight 628 pounds. He has a temperature of 36.8, pulse 108, respirations 18, blood pressure 148/94. He is alert, follows basic [facility] [address] [place] [address] HISTORY AND PHYSICAL Name: PATRICK GALAVIZ Room #: 504-1 [facility] IN .R.#: [id number] Admission: 09/28/18 ������������������ Attend Phys: Stevenson Dennis MD Discharge: ������������������ Date of : 82 Report #: [id number] commands. HEENT: Facies are symmetric. CHEST: Sounded clear to auscultation. CARDIOVASCULAR: Regular rate and rhythm. ABDOMEN: Morbidly obese with a large pendulous abdomen. Bowel sounds appeared to be intact. NEUROLOGIC: He has functional range of motion of his very large arms with strength probably a grade 4-/5. EXTREMITIES: They are both wrapped. His left lower extremity has the postop surgical wrap. He is able to move his right leg a little bit better can lift the right leg up off the ground, some difficulty with his pendulous abdomen. Lying on the proximal thigh. Left lower extremity has more difficulty trying to lift that left leg up off the bed. He is able to wiggle his toes can move the ankle, probably at least a grade 4-/5. Transfers have been at a min assist level and he had been ambulating min assist short distances with a front-wheeled walker. ASSESSMENT: A 38-year-old male with the following problem list: 1. Chronic nonhealing left lower extremity venous stasis wound, status post excisional debridement x 2. 2. Bilateral lower extremity cellulitis. 3. Super morbid obesity. 4. Considerable bilateral lower extremity lymphedema. 5. Multiple steps into his house. PLAN: He has been admitted for acute in-hospital inpatient rehabilitation. From a post-admission physician evaluation perspective, there are no relevant changes since the preadmission screening. Please see the above review of prior and current medical and functional conditions and comorbidities. As far as risk of complications, she has the multiple medical comorbidities as noted above. Initial plan of care involves the interdisciplinary acute inpatient rehabilitation program. Goals would be for him to improve as far as strength of upper and lower extremities. Further improvement of the leg wounds and progress as far as being able to go up and down stairs, so he can return back to the home setting. Goal would be to become independent with a walker level. Prognosis is reasonably good with estimated length of stay probably at least 10 days to 2 weeks. We will need to see how he does in therapies. ��������������������������������������������� <ELECTRONICALLY SIGNED> ���������������������������������������� By: Stevenson Dennis MD ��������������������������������������������� 10/07/18 [id number] Stevenson Dennis MD /nt
--- NOTE | 2018-10-07 17:07 | NUR ---
PT RESTING IN BED EATING DINNER AND WATCHING TV. NO PAIN NO COUGH NO RESP DISTRESS.
[2018-10-07 19:12] VITALS: BP 196/80
--- NOTE | 2018-10-07 23:41 | NUR ---
ASSUMED CARE AT 1900, ASSESSMENT COMPLETED. PT DENIED NAUSEA. REPORTS STILL HAVING A DRY/SORE THROAT WITH OCCASIONAL DRY COUGH; GIVEN COUGH DROP WITH HS MEDS. REPORTS MILD PAIN IN LEFT LEG, DECLINED ANY PAIN MEDS AT THIS TIME. BILATERAL LEGS DRESSINGS ARE C/D/I; CHANGED TODAY PER WOUND TEAM, LEAVE IN PLACE OVER THE WEEKEND. PT ORDERED FOOD THROUGH DOOR DASH; STATED HE HAD CHICKEN NUGGETS AND A DOUBLE CHEESEBURGER. WILL LET PT REST UNDISTURBED [phone], UNLESS PT CALLS FIRST. NO OTHER CONCERNS, WILL CONTINUE TO MONITOR.
[2018-10-08 07:29] VITALS: BP 141/75
[2018-10-08 19:30] VITALS: BP 144/71
--- NOTE | 2018-10-08 20:11 | NUR ---
ASSUMED CARE OF PT AT 0715. PT IS A&OX4 AND VITAL SIGNS ARE STABLE. PT TRANSFERED WITH THERAPY WITH 2 PERSON MAX ASSIST USING GAIT BELT AND WALKER. TOLERATED MEDICAITONS WHOLE WITH THIN LIQUIDS. VINITA WRAPS TO BLE C/D/I. PT STATED THAT HE WANTS TO TALK TO DIETARY ABOUT REMOVING LOW FAT FROM HIS DIET ORDERS ON WEDNESDAY. PT ORDERED IN HOOTERS AT LUNCH, BASKEN ROBINS AND OTHER DELIVERY MEAL AT DINNER, WELL EATING 100% OF ALL MEALS PROVIDED AND SEVERAL SNACKS IN BETWEEN MEALS. PT REFUSED TO TURN EVERY 2 HOURS WHILE IN BED. FALL PRECAUTIONS IN PLACE AND NURSING WILL CONTINUE TO MONITOR.
[2018-10-08 20:30] VITALS: BP 144/99
--- NOTE | 2018-10-09 00:17 | NUR ---
assumed care at approx 1900 evening 10/08. pt lying in bed with head of bed elevated. pt alert and oriented x4, appropriate and cooperative. pt voiding per urinal. pt had large amt food delivered approx 1999. pt took hs meds with water and declined stool softener stating he had bm today 10/08. pt refusing to turn in bed. pt appears to be sleeping soundly with hourly rounding checks. bed alarm on and call light in reach. will continue to monitor.
[2018-10-09 08:00] VITALS: BP 143/77
[2018-10-09 19:38] VITALS: BP 149/90
--- NOTE | 2018-10-09 20:37 | NUR ---
ASSUMED CARE OF PT AT 0715. PT IS A&OX4 AND VITAL SIGNS ARE STABLE. PT TRANSFERED WITH THERAPY WITH 2 PERSON MAX ASSIST USING GAIT BELT AND WALKER. TOLERATED MEDICAITONS WHOLE WITH THIN LIQUIDS. VINITA WRAPS TO BLE C/D/I. PT ORDERED IN DELIVERY AT LUNCH, BASKEN ROBINS AND OTHER DELIVERY MEAL AT DINNER, WELL EATING 100% OF ALL MEALS PROVIDED AND SEVERAL SNACKS IN BETWEEN MEALS. FALL PRECAUTIONS IN PLACE AND NURSING WILL CONTINUE TO MONITOR.
--- NOTE | 2018-10-10 03:12 | NUR ---
RESTING WELL OVERNIGHT, USING URINAL, LOOKING FORWARD TO LYMPHEDEMA WRAPS AFTER SHOWER THIS MORNING.
--- NOTE | 2018-10-10 09:13 | NUR ---
WOUND CARE FOLLOW UP; ASSSESSMENT OF THE RIGHT LE WOUND; INCREASED HYPERGRANULATION TISSUE SEEN. INCREASED BLOOD CLOTS IN THE WOUND BED. PERIWOUND MACERATION CONTINUES. RECOMMENDATION; CONTINUE CURRENT POC DISCUSSED WITH STAFF
[2018-10-10 19:16] VITALS: BP 153/76
--- NOTE | 2018-10-10 19:52 | NUR ---
ASSUMED CARE OF PT AT 0715. PT IS A&OX4 AND VITAL SIGNS ARE STABLE. PT TOLERATED PO MEDICATIONS WHOLE WITH THIN LIQUIDS. REPORTED PAIN THIS MORNING AT SHIFT CHANGE AND WAS TREATED SUCCESSFULLY WITH PO PAIN MEDICATIONS PER ORDERS, PARTICIPATED IN SCHEDULED THERAPIES. TRANSFERS WITH 2 PERSON MOD-MAX ASSIST WITH GAIT BELT AND WALKER. PATIENT ATE ALL MEALS PROVIDED WITH SNACKS BETWEEN MEALS AND ALSO ORDERED IN MEALS AT 1330 AND 1830 WELL ORDERING BHARTI ROBINS AT 1800. VINITA WRAPS CHANGED THIS SHIFT BY WOUND CARE. FALL PRECAUTIONS IN PLACE AND NURSING WILL CONTINUE TO MONITOR.
--- NOTE | 2018-10-11 05:03 | NUR ---
PATIENT ALERT AND ORIENTED X4. STAYS IN BED. UP WITH MAX ASSIST. DENIES PAIN. SLEPT MOST OF NIGHT.
[2018-10-11 07:58] VITALS: BP 130/81
--- NOTE | 2018-10-11 12:28 | NUR ---
team meeting, dcp 26th with [facility] (pt, and nursing for wound care) , vs outpt wound care if insurance wont cover [facility]. outpt support for personal support (mental health).
[2018-10-11 19:38] VITALS: BP 126/76
--- NOTE | 2018-10-11 19:41 | NUR ---
PATIENT ALERT AND ORIENTED AND COOPERATIVE WITH TREATMENTS. NOTICED SMALL AREA OF SKIN BREAKDOWN ON COCCYX AREA; WOUND CARE IS AWARE AND TO APPLY BARRIER CREAM. LYMPHDEMA WRAPS ON MWF AND NEED TO BE PREMEDICATED WITH PAIN MEDS PRIOR TO WOUND CARE AND NEW LYPHDEMA WRAPS. THERE IS PLAN TO DISCHARGE ON 10/14 WITH DEBRIDEMENT ON BOTH LOWER EXTREMITIES PRIOR TO DISCHARGE HOME. PATIENT STATES HE WILL GET BARIATRIC GASTRIC SURGERY IN THE FUTURE BY DR. SARMIENTO, BUT NEEDS DIETARY CONSULT AMONG OTHER REQUIREMENTS.
--- NOTE | 2018-10-12 03:17 | NUR ---
ASSUMED CARE OF PT AT 1915. PT IS A&OX4 AND VITAL SIGNS ARE STABLE. PT IN BED AND REFUSED TO BE TURNED DURING SHIFT. TOLERATED PO MEDICAITONS WHOLE WITH THIN LIQUIDS. BARRIER CREAM APPLIED EARLY IN SHIFT TO COCCYX. PT HAD BHARTI ROBINS DELIVERED AT START OF SHIFT. FALL PRECAUTIONS IN PLACE AND NURSING WILL CONTINUE TO MONITOR.
[2018-10-12 08:30] VITALS: BP 131/68
--- NOTE | 2018-10-12 09:09 | NUR ---
ASSUMED CARE OF PT APPROX 0715, C/O PAIN WITH LLE WOUND, GAVE TYLENOL FOR NOW AND HYDROCDONE BEFORE DRESSING CHANGE LATE A.M., USES CALL LIGHT FOR NEEDS, AMB W/WALKER AND TWO STAFF MEMBERS FOR SAFETY. IS NOT IMPULSIVE, TALKING ABOUT FAMILY AND MISSING SON, GOAL TODAY IS TRY TO WALK BETTER W/ MINIMAL PAIN POSSIBLE. ENCOURAGED HIM TO USE CALL LIGHT FOR ANY NEEDS
--- NOTE | 2018-10-12 12:12 | NUR ---
WOUND CARE FOLLOW UP; THE WOUND TODAY REMAINS UNCHANGED. GRANULATION IS PRESENT WITH SOME HYPERGRANULATION TODAY. THE PATIENT REPORTS LESS DRAINAGE. THE OLD DRESSING WAS NOT ASSESSED, P.T. HAD REMOVED THE DRESSING PRIOR. THE WOUND REMAINS TENDER. RECOMMENDATION; CONTINUE CURRENT PLAN OF CARE WITH PURACOL AG, XEROFORM,ABD, KERLIX SECURED WITH LYMPHEDEMA WRAPS. DISCUSSED WITH JUSTIN
--- NOTE | 2018-10-12 13:03 | NUR ---
Nutrition: Pt continues on rehab unit with chronic nonhealing left LE venous stasis wound with cellulitis and lymphedema. S/P repeat debridement. Wound care notes hypergranulation and less drainage. Pt eating 100% meals and drinking 100% ensure max BID. RD starting Karlos BID. Orders meals and chooses HBV protein sources. Will pursue bariatric surgery as outpatient.
--- NOTE | 2018-10-12 14:05 | NUR ---
Patient participated in community reintegration on 10/12/18 with Physical Therapy. Refer to documentation by PT.
--- NOTE | 2018-10-12 16:32 | NUR ---
Trung is talking with [facility], Wound Care and outpt therapy to see what options are avaiable for [facility] f/u visits for the pt. Cm director involved as well.
[2018-10-12 19:46] VITALS: BP 151/86
[2018-10-13 08:05] VITALS: BP 140/76
[2018-10-13] MEDS ORDERED: NORCO 7.5-3251 EACH PO (14:49)
[2018-10-13] MEDS ORDERED: NEURONTIN 300300 M1 PO (14:50)
[2018-10-13] MEDS ORDERED: COLACE100 MG PO (14:50)
[2018-10-13] MEDS ORDERED: DAKIN'S473 ML TOP (14:50)
--- NOTE | 2018-10-13 16:15 | NUR ---
ASSUMED CARE OF PT AT 0715. PT IS A&OX4 AND VITAL SIGNS ARE STABLE. PT TOLERATED PO MEDICAITONS WHOLE WITH THIN LIQUIDS. REPORTED PAIN 6/10 IN HIS LLE, MANAGED WITH PO PAIN MEDICAITONS WITH PARTIAL RELIEF, PARTICIPATED IN SCHEDULED THERAPIES. TRANSFERS AND AMBULATES WITH 1-2 PERSON STB/MIN ASSIST USING GAIT BELT AND WALKER. ORDERS FOR DEBRIEDMENT TOMORROW MORNING, CONSENT NOT SIGNED AT THIS TIME AND ON CHART, WAITING ON DR. SARMIENTO TO VISIT WITH PT. SCRIPTS ON CHART FOR D/C TOMORROW. VINITA WRAPS TO BLE C/D/I. CASE MANAGEMENT IN PT ROOM DISCUSSING D/C PLANNING. FALL PRECAUTIONS IN PLACE AND NURSING WILL CONTINUE TO MONITOR.
[2018-10-13 20:05] VITALS: BP 141/66
--- NOTE | 2018-10-13 23:55 | NUR ---
Care assumed of patient at 1915: Patient alert and oriented x4. Patient resting in bed this shift. Patient pleasant and cooperative. Patient spoke about the stress he is currently having in his life. Patient spoke of his whom is he from, his 2 year old son that he hasn't seen since July 2018, his loss of insurance then his new insurance that isn't covering treatments for him. Discussed appropriate coping mechanisms with patient. Patient did have food delivered this shift and ate 75% shrimp fried rice and 75% pint of ice cream. Patient is to have surgery at 0900 on 10/14/18. Patient NPO at this time. Consents for surgery are located on his chart. Patient has been continent of bladder using urinal while laying in bed. Patient has been filling out paperwork for insurance this shift. Bilateral lower extremities wrapped at this time. No drainage present, wraps are intact. Patient reported pain rated 7/10 to bilateral lower extremities and requested 2 Hydrocodone. Medication given and has been effective in reducing pain level. Patient has remained supine in bed and declines to turn or shift weight at this time. Plan is for patient to d/c after surgery 10/14/18. Patient is worried about discharge but hopeful.
[2018-10-14 05:57] LABS: ABSOLUTE NEUTROPHILS 4.3 thou/uL (1.4-8.2); BASOPHILS 0.4 % (0.0-2.0); EOSINOPHILS 6.7 % (0.0-3.0); HEMATOCRIT 33.3 % (42.0-52.0); HEMOGLOBIN 10.7 gm/dL (14.0-18.0); LYMPHOCYTES 22.4 % (24.0-44.0); MCH 29.1 pg (26.0-34.0); MCHC 32.2 g/dL (28.0-37.0); MCV 90.4 fL (80.0-100.0); MONOCYTES 7.1 % (1.0-8.0); PLATELET COUNT 223 thou/uL (150-400); POLYS 63.4 % (36.0-66.0); RBC 3.68 mil/uL (4.50-6.00); RDW 15.4 % (10.5-14.5); WBC 6.7 thou/uL (4.0-11.0)
[2018-10-14 06:11] LABS: CALCIUM 8.5 mg/dL (8.5-10.1); CREATININE 0.7 mg/dL (0.7-1.3); MAGNESIUM 1.9 mg/dL (1.8-2.4); POTASSIUM 4.1 mmol/L (3.5-5.1)
[2018-10-14 08:03] VITALS: BP 147/99
--- NOTE | 2018-10-14 08:09 | NUR ---
ASSUME PT THIS AT 0700. RECEIVED REPORT FROM NIGHT RN THAT PT WILL HAVE SURGERY THIS AM. VSS ON RA. HR 115 DUE TO ANXIETY.REASSEMENT PER CHART. ASSISTED PT WITH BATH THIS AM. GATHERED ALL PT'S BELONGINGS FOR SURGERY. PT WANTS TO SIGN CONSENT AFTER TALKING TO HIS SURGEON. PT HAS BEEN ON NPO SINCE LAST NIGHT. HAD PAIN MED LAST NIGHT. PT LEFT UNIT AT THIS MOMENT
[2018-10-14 10:41] VITALS: BP 147/99
[2018-10-14 11:00] VITALS: BP 147/99
--- NOTE | 2018-10-14 13:40 | NUR ---
Pt dc'd from acute rehab to outpt surgery for an I/D. Director Underwriter Sales made f/u visit with the pt and his mom in the recovery unit. Pt going home this afternoon via [facility] transport that he has arranged. Scripts taken to [facility]. CM vouchered copays totaling $49.56. Outpt lymphodema therapy arranged for 3xwkly here at [facility]. Dr. Gaines from wound care to see him once a week during one of those therapy visits. Transport negotiated with [employer] for $70 fee per round trip. The pt has agreed to pay for two trips per week and cm will voucher one trip per week. Discount negotiated with Mckenzie at [employer]. Pickup arranged for 1:30pm Wednesday for his first appt. His appt schedule for outpt will be Mondays at 2:30pm and Wednesdays and Fridays at 1pm until he can decrease to twice a week which will need to be approved through Dr. Gaines. Script and facesheet faxed to outpt therapy. Arrangements and [facility] approval for visits and transport approved through [facility] [employer] of . Pt's mothers [place] [id number] [id number]. Updated on the pt's face sheet as he is living with her. Pt and his mother are agreeable to the dc plan. Pt to continue his home exercise plan, outpt lympodema tx, and looking into mental health counseling. He continues to be on medical leave through his employer. Case closed.
== END 2018-10-14 08:19 | disposition home or self-care (01) | DRG 593 ==
PROVIDERS: Nurse Practitioner; ADMIT Physical Medicine & Rehabilitation
DX: L97.921 Non-pressure chronic ulcer of unspecified part of left lower leg limited to breakdown of skin (principal); L03.115 Cellulitis of right lower limb; Z68.45 Body mass index [BMI] 70 or greater, adult; L03.116 Cellulitis of left lower limb; E66.01 Morbid (severe) obesity due to excess calories; G47.33 Obstructive sleep apnea (adult) (pediatric); I87.8 Other specified disorders of veins; R59.1 Generalized enlarged lymph nodes; F43.23 Adjustment disorder with mixed anxiety and depressed mood
CPT/HCPCS: 10112; 50010; 50101; 50386; 57091; 57119; 57120; 62110; 62900; 70005

== ENCOUNTER 2018-10-14 10:20 | Day surgery (SDC) | payer BC, OTHER ==
[~2018-10-14 10:20] MED LIST changes: +COLACE100 MG PO; +NORCO 7.5-3251 EACH PO
--- NOTE | 2018-10-25 09:34 | O ---
[facility] [place] [address] OPERATIVE REPORT Name: GALAVIZPATRICK Devi Room #: [facility].#: [id number] Admission: 10/14/18 Attend Phys: Lillian Weiss MD, Discharge: 10/14/18 Date of : 84 Report #: [id number] THIS REPORT FOR: //name// CC: FAM unknown Lillian Weiss DATE OF SERVICE: 10/14/2018 PREOPERATIVE DIAGNOSES: 1. Severe super morbid obesity. 2. Massive bilateral lower extremity lymphedema. 3. Nonhealing left lower extremity venous stasis wound. POSTOPERATIVE DIAGNOSES: 1. Severe super morbid obesity. 2. Massive bilateral lower extremity lymphedema. 3. Nonhealing left lower extremity venous stasis wound. PROCEDURE PERFORMED: Excisional debridement of skin, subcutaneous tissue and muscle/fascia of his nonhealing left lower extremity venous stasis ulcerative wound ultimately measuring 64 x 36 cm in dimension (2304 square cm). Preoperative and postoperative wound measurements did not differ substantially as the overall dimensions of the wound did not change. SURGEON: Lillian Weiss MD. BUNKER WORKER: None. ANESTHESIA: General endotracheal anesthesia. ESTIMATED BLOOD LOSS: Minimal (less than 10 mL). COMPLICATIONS: None appreciated. SPECIMENS: All debrided tissue to pathology. INDICATIONS: The patient is a 38-year-old severely super morbid obese -Bur[place] male with massive bilateral lower extremity lymphedema who has undergone multiple rounds of debridement of his nonhealing left lower extremity venous stasis ulcerative wound. The patient has near circumferential necrosis with fibrinous necrotic tissue throughout and requires ongoing debridement back to healthy tissue to allow for the potential of possible wound healing. DESCRIPTION OF PROCEDURE: After explaining the risks, benefits and alternatives of the procedure with the patient in detail and obtaining consent, the patient was brought to the operating room and placed supine on his hospital bed. After [facility] [address] [place] [address] OPERATIVE REPORT Name: ANASTACIAPATRICK T Room #: [facility] Cristofer#: [id number] Admission: 10/14/18 Attend Phys: Lillian Weiss MD, Discharge: 10/14/18 Date of : 84 Report #: [id number] conducting a thorough timeout procedure verifying correct patient and procedure, he was given general endotracheal anesthesia. Once adequate anesthesia was obtained, the SCDs on his right lower extremity was hooked up to pneumatic compression device. He was already on an inpatient regimen of IV antibiotic therapy, which was in line with the SCIP protocol. The patient's left lower leg was prepped and draped circumferentially in standard surgical sterile fashion from toes to mid thigh and I proceeded to use electrocautery to remove all nonviable tissue. The Blue [employer] ultrasonic debridement tool was now used to circumferentially debride all remaining nonviable skin, subcutaneous tissue and muscle/fascia from the entirety of the wound. This brought the wound down to healthy vascularized beefy red tissue throughout. Pressure was held for hemostasis and electrocautery was used for complete hemostasis. The patient does have massive lymphedema and lymph fluid was seen to drip out of the wound continuously. I then proceeded to dress the wound with Xeroform, 4 x 4s, Telfa, ABDs and circumferential Kerlix with Dima wrap compression. At the end of the procedure, all instrument, needle and sponge counts were correct. The patient tolerated the procedure without incident, was awakened in the operating room and transitioned to the recovery room in stable condition with no apparent complications. <ELECTRONICALLY SIGNED> By: Lillian Weiss MD, FACS 10/25/18 0934 1218 1234 Lillian Weiss MD, FACS /nt
== END 2018-10-14 14:30 | disposition home or self-care (01) ==
LOC: OR 10:20 → TBA 10:20 → OR 14:30
DX: T81.89XA Other complications of procedures, not elsewhere classified, initial encounter (principal); I89.0 Lymphedema, not elsewhere classified; E66.01 Morbid (severe) obesity due to excess calories; G47.33 Obstructive sleep apnea (adult) (pediatric); Z98.890 Other specified postprocedural states; Z68.45 Body mass index [BMI] 70 or greater, adult; Z79.899 Other long term (current) drug therapy; Y83.8 Other surgical procedures as the cause of abnormal reaction of the patient, or of later complication, without mention of misadventure at the time of the procedure

== ENCOUNTER → 2018-12-13 | Outpatient (CLI) | payer BC, OTHER | LOC: RAD 09:46 | DX: Z01.818 Encounter for other preprocedural examination (principal) ==

== ENCOUNTER → 2019-03-29 | Outpatient (CLI) | payer OTHER | LOC: HYPER 08:53 | DX: L97.222 Non-pressure chronic ulcer of left calf with fat layer exposed (principal); L97.812 Non-pressure chronic ulcer of other part of right lower leg with fat layer exposed; L84 Corns and callosities; I89.0 Lymphedema, not elsewhere classified; I87.2 Venous insufficiency (chronic) (peripheral); E66.01 Morbid (severe) obesity due to excess calories; Z68.45 Body mass index [BMI] 70 or greater, adult ==